=== PATIENT | female | born 1940 | race Caucasian/White ===

== ENCOUNTER 2016-12-12 11:09 | Inpatient (IN) | payer MEDICARE, BC ==
[2016-12-12] MEDS ORDERED: Sodium Chloride 0.9% 10 ML Syringe FLUSH PRN (11:13)
[2016-12-12] MEDS ORDERED: Piperacillin/Tazobactam 4.5 GM in Sodium Chloride 0.9% 100 ML IV ONE (11:54)
[2016-12-12 12:16] LABS: CHLORIDE,CL 106 mmol/L (98-107); SODIUM,NA 142 mmol/L (136-145)
[2016-12-12] MEDS ORDERED: Sodium Chloride 0.9% 1,000 ML IV ONE (12:31)
[2016-12-12] MEDS ORDERED: Ondansetron 4 MG/2 ML SDV IV PRN (13:08)
[2016-12-12] MEDS ORDERED: Ondansetron 4 MG Tab.DIS PO PRN (13:08)
[2016-12-12] MEDS ORDERED: Acetaminophen 325 MG Tab PO PRN (13:13)
[2016-12-12] MEDS ORDERED: LORazepam 2 MG/ML SDV IVPUSH PRN (13:14)
--- NOTE | 2016-12-12 13:17 | EDM.PDOC ---
ED HPI GENERAL MEDICAL PROBLEM - General Chief Complaint: General Stated Complaint: weakness, decreased LOC Time Seen by Provider: 12/12/16 11:15 Source of Information: Reports: RN Notes Reviewed, Other (correction staff) History Limitations: Reports: Altered Mental Status - History of Present Illness INITIAL COMMENTS - FREE TEXT/NARRATIVE: Pt. sent to ER with confusion and decreased LOC. Pt. has history of dementia but is normally ambulatory and participates well with her ADLs. Staff states that pt. was started on Bactrim DS with presumed diagnosis of UTI. Pt. symptoms have not improved and she has been febrile for the past several days. Staff states that she has not had a significant cough and has not complained of dyspnea. Staff states that pt. is not able to ambulate and is much less alert. - Related Data Allergies Allergy/AdvReac Type Severity Reaction Status Date / Time No Known Drug Allergies Allergy Other Verified 12/12/16 11:21 meperidine HCl [From Demerol] AdvReac Nausea Verified 12/12/16 11:21 seasonal Allergy Other Uncoded 12/12/16 11:21 "concetta" AdvReac Nausea Uncoded 12/12/16 11:21 Home Meds: Home Meds Acetaminophen 325 mg PO Q6H PRN 02/09/15 [History] Acetaminophen/traMADol [Ultracet] 1 tab PO Q6H PRN 02/09/15 [History] Calcium Carbonate [Calcium] 1,200 mg PO DAILY 02/09/15 [History] Cholecalciferol (Vitamin D3) [Vitamin D3] 2,000 units PO DAILY 02/09/15 [History ] Fenofibrate,Micronized [Lofibra] 134 mg PO DAILY 02/09/15 [History] Fenofibrate,Micronized [Lofibra] 134 mg PO DAILY 02/09/15 [History] Lutein 6 mg PO DAILY 02/09/15 [History] Lysine 500 mg PO DAILY 02/09/15 [History] Magnesium Oxide [Magnesium] 400 mg PO DAILY 02/09/15 [History] Olmesartan [Benicar] 20 mg PO DAILY 02/09/15 [History] [place]-3 Acid Ethyl Esters 2 gm PO DAILY 02/09/15 [History] Pantoprazole Sodium 40 mg PO DAILY 02/09/15 [History] Prochlorperazine Maleate [Compazine] 10 mg PO ASDIRECTED PRN 02/09/15 [History] Psyllium Husk [Psyllium Fiber] 4 cap PO BEDTIME 02/09/15 [History] Rosuvastatin [Crestor] 5 mg PO DAILY 02/09/15 [History] Triamterene/Hydrochlorothiazid [Triamterene-HCTZ 75-50 MG] 0.5 each PO DAILY [History] clonazePAM [Clonazepam] 2 mg PO BID 02/09/15 [History] hydrOXYzine HCl [hydrOXYzine] 25 mg PO ASDIRECTED PRN 02/09/15 [History] metFORMIN [Glucophage] 500 mg PO DAILY 02/09/15 [History] prednisoLONE Acetate [Pred Forte 1% Ophth Susp] 1 drop EYERT DAILY 02/09/15 [ History] Aspirin [Halfprin] 81 mg PO DAILY #0 02/19/15 [Rx] Potassium Chloride [Klor-Con 10] 10 meq PO BID #0 02/19/15 [Rx] QUEtiapine [SEROquel XR] 300 mg PO BID #0 02/19/15 [Rx] Rivaroxaban [Xarelto] 10 mg PO BEDTIME #14 tablet 02/19/15 [Rx] Past Medical History Other Genitourinary History: bladder surgery Other Psychiatric History: seasonal affective disorder Other Hematologic History: thrombocytopenia - Past Surgical History Other HEENT Surgeries/Procedures: eye surgery Social & Family History - Tobacco Use Smoking Status *Q: Never Smoker Second Hand Smoke Exposure: No - Recreational Drug Use Recreational Drug Use: No ED ROS GENERAL - Review of Systems Review Of Systems: Unable To Obtain ED EXAM, GENERAL - Physical Exam Exam: See Below Exam Limited By: Altered Mental Status General Appearance: No Apparent Distress Throat/Mouth: Normal Inspection, Normal Lips, Normal Oropharynx, No Airway Compromise Head: Atraumatic, Normocephalic Neck: Normal Inspection, Supple, Non-Tender, Full Range of Motion Respiratory/Chest: No Respiratory Distress, Lungs Clear, No Accessory Muscle Use , Chest Non-Tender, Decreased Breath Sounds (bases bilaterally, worse on left) Cardiovascular: Normal Peripheral Pulses, Regular Rate, Rhythm, No Edema, No Murmur GI/Abdominal: Normal Bowel Sounds, Soft, Non-Tender, No Distention (Female) Exam: Deferred Rectal (Female) Exam: Deferred Back Exam: Normal Inspection, Full Range of Motion Extremities: Normal Inspection, Normal Range of Motion, Non-Tender, Normal Capillary Refill Neurological: Alert, CN II-XII Intact, Inattentive, Confused, Memory Loss Recent Events, Abnormal Reflexes Psychiatric: Normal Affect, Normal Mood Skin Exam: Warm, Dry, Intact, Normal Color Lymphatic: No Adenopathy Course - Vital Signs Last Recorded V/S: Last Vital Signs Temp 37.2 C 12/12/16 13:11 Pulse 87 12/12/16 13:11 Resp 16 12/12/16 13:11 BP 139/61 12/12/16 13:11 Pulse Ox 97 12/12/16 13:11 - Orders/Labs/Meds Orders: Active Orders 24 hr Category Date Time Status Patient Status [ADT] Routine ADT 12/12/16 12:34 Active EKG Documentation Completion [RC] STAT Care 12/12/16 11:14 Ordered Oxygen Therapy [RC] 08,20 Care 12/12/16 11:13 Active Chest 1V Frontal [CR] Stat Exams 12/12/16 11:14 Taken CULTURE BLOOD [BC] Stat Lab 12/12/16 11:18 Received CULTURE BLOOD [BC] Stat Lab 12/12/16 11:28 Received Sodium Chloride 0.9% [Saline Flush] Med 12/12/16 11:13 Active 10 ml FLUSH ASDIRECTED PRN Blood Culture x2 Reflex Set [OM.PC] Stat Oth 12/12/16 11:16 Ordered Peripheral IV Insertion Adult [OM.PC] Routine Oth 12/12/16 11:15 Ordered Medication Orders Acetaminophen (Tylenol) 650 mg PO Q4H PRN PRN Reason: Fever Enoxaparin Sodium (Lovenox) 40 mg SUBCUT DAILY SUSANNE Sodium Chloride (Normal Saline) 1,000 mls @ 100 mls/hr IV ASDIRECTED SUSANNE Piperacillin Sod/Tazobactam (Sod 3.375 gm/ Sodium Chloride) 100 mls @ 200 mls/ hr IV Q6H SUSANNE Lorazepam (Ativan) 1 mg IVPUSH Q4H PRN PRN Reason: Seizures Non-Formulary Medication (Nf Drug) 1 each IVPUSH Q6H SUSANNE Ondansetron HCl (Zofran Odt) 4 mg PO Q6H PRN PRN Reason: nausea, able to take PO Ondansetron HCl (Zofran) 4 mg IV Q4H PRN PRN Reason: Nausea/Vomiting Sodium Chloride (Saline Flush) 10 ml FLUSH ASDIRECTED PRN PRN Reason: Keep Vein Open Labs: Laboratory Tests 12/12/16 12/12/16 12/12/16 Range/Units 11:18 11:28 11:28 WBC 12.4 H (4.0-10.0) x10^3/uL RBC 4.19 (4.00-5.50) x10^6/uL Hgb 13.0 D (12.0-16.0) g/dL Hct 39.1 (33.0-47.0) % MCV 93.3 H (78.0-93.0) fL MCH 31.0 (26.0-32.0) pg MCHC 33.2 (32.0-36.0) g/dL RDW Coeff of [place] 13.3 (10.0-15.0) % Plt Count 284 D (130-400) x10^3/uL Neut % (Auto) 81.6 H (50.0-80.0) % Lymph % (Auto) 7.1 L (25.0-50.0) % [place] % (Auto) 11.1 H (2.0-11.0) % Eos % (Auto) 0.0 (0.0-4.0) % Baso % (Auto) 0.2 (0.2-1.2) % PT 10.9 (9.8-11.8) SEC INR 1.0 L (2.0-3.5) Sodium 142 (136-145) mmol/L Potassium 4.3 (3.5-5.1) mmol/L Chloride 106 (98-107) mmol/L Carbon Dioxide 25 (21-32) mmol/L BUN 25 H (7-18) mg/dL Creatinine 0.8 (0.55-1.02) mg/dL Est Cr Clr Drug Dosing TNP Estimated GFR (MDRD) > 60 Glucose 120 H (74-106) mg/dL Lactic Acid (0.4-2.0) mmol/L Calcium 9.2 (8.5-10.1) mg/dL Corrected Calcium 9.76 (8.5-10.1) mg/dL Phosphorus 2.9 (2.6-4.7) mg/dL Magnesium 2.2 (1.8-2.4) mg/dL Total Bilirubin 0.4 (0.2-1.0) mg/dL AST 58 H (15-37) U/L ALT 43 (14-59) U/L Alkaline Phosphatase 86 (46-116) U/L Creatine Kinase 1160 H* (26-192) U/L Creatine Kinase Index 0.2 (0.0-4.0) % CK-MB (CK-2) 2.8 (0.0-3.6) ng/mL Troponin I 0.034 (<=0.056) ng/mL C-Reactive Protein 23.9 H (<=0.9) mg/dL NT-Pro-B Natriuret Pep 208 (<=450) pg/mL Total Protein 7.7 (6.4-8.2) g/dL Albumin 3.3 L (3.4-5.0) g/dL Globulin 4.4 Albumin/Globulin Ratio 0.75 Urine Color (YELLOW) Urine Appearance (CLEAR) Urine pH (5.0-8.0) Ur Specific [place] Urine Protein (NEGATIVE) mg/dL Urine Glucose (UA) (NEGATIVE) mg/dL Urine Ketones (NEGATIVE) mg/dL Urine Occult Blood (NEGATIVE) Urine Nitrite (NEGATIVE) Urine Bilirubin (NEGATIVE) Urine Urobilinogen (0.2) EU/dL Ur Leukocyte Esterase (NEGATIVE) Urine RBC (NOT SEEN) /HPF Urine WBC (NOT SEEN) /HPF Ur Squamous Epith Cells (NEGATIVE) /HPF Urine Bacteria (NEGATIVE) /HPF Urine Mucus (NEGATIVE) /LPF 12/12/16 12/12/16 Range/Units 11:28 12:25 WBC (4.0-10.0) x10^3/uL RBC (4.00-5.50) x10^6/uL Hgb (12.0-16.0) g/dL Hct (33.0-47.0) % MCV (78.0-93.0) fL MCH (26.0-32.0) pg MCHC (32.0-36.0) g/dL RDW Coeff of [place] (10.0-15.0) % Plt Count (130-400) x10^3/uL Neut % (Auto) (50.0-80.0) % Lymph % (Auto) (25.0-50.0) % [place] % (Auto) (2.0-11.0) % Eos % (Auto) (0.0-4.0) % Baso % (Auto) (0.2-1.2) % PT (9.8-11.8) SEC INR (2.0-3.5) Sodium (136-145) mmol/L Potassium (3.5-5.1) mmol/L Chloride (98-107) mmol/L Carbon Dioxide (21-32) mmol/L BUN (7-18) mg/dL Creatinine (0.55-1.02) mg/dL Est Cr Clr Drug Dosing Estimated GFR (MDRD) Glucose (74-106) mg/dL Lactic Acid 1.2 (0.4-2.0) mmol/L Calcium (8.5-10.1) mg/dL Corrected Calcium (8.5-10.1) mg/dL Phosphorus (2.6-4.7) mg/dL Magnesium (1.8-2.4) mg/dL Total Bilirubin (0.2-1.0) mg/dL AST (15-37) U/L ALT (14-59) U/L Alkaline Phosphatase (46-116) U/L Creatine Kinase (26-192) U/L Creatine Kinase Index (0.0-4.0) % CK-MB (CK-2) (0.0-3.6) ng/mL Troponin I (<=0.056) ng/mL C-Reactive Protein (<=0.9) mg/dL NT-Pro-B Natriuret Pep (<=450) pg/mL Total Protein (6.4-8.2) g/dL Albumin (3.4-5.0) g/dL Globulin Albumin/Globulin Ratio Urine Color Yellow (YELLOW) Urine Appearance Slightly cloudy H (CLEAR) Urine pH 6.5 (5.0-8.0) Ur Specific [place] >=1.030 Urine Protein 100 H (NEGATIVE) mg/dL Urine Glucose (UA) Negative (NEGATIVE) mg/dL Urine Ketones Negative (NEGATIVE) mg/dL Urine Occult Blood Moderate H (NEGATIVE) Urine Nitrite Negative (NEGATIVE) Urine Bilirubin Small H (NEGATIVE) Urine Urobilinogen 0.2 (0.2) EU/dL Ur Leukocyte Esterase Small H (NEGATIVE) Urine RBC 5-10 H (NOT SEEN) /HPF Urine WBC 30-40 H (NOT SEEN) /HPF Ur Squamous Epith Cells Not seen (NEGATIVE) /HPF Urine Bacteria Many H (NEGATIVE) /HPF Urine Mucus Few H (NEGATIVE) /LPF Meds: Medications Generic Name Dose Route Start Last Admin Trade Name Parveen PRN Reason Stop Dose Admin Acetaminophen 650 mg 12/12/16 13:13 Tylenol PO Q4H PRN Fever Enoxaparin Sodium 40 mg 12/13/16 08:00 Lovenox SUBCUT DAILY SUSANNE Sodium Chloride 1,000 mls @ 100 mls/hr 12/12/16 13:07 Normal Saline IV ASDIRECTED SUSANNE Piperacillin Sod/Tazobactam 100 mls @ 200 mls/hr 12/12/16 13:15 Sod 3.375 gm/ Sodium Chloride IV Q6H SUSANNE Lorazepam 1 mg 12/12/16 13:14 Ativan IVPUSH Q4H PRN Seizures Non-Formulary Medication 1 each 12/12/16 13:15 Nf Drug IVPUSH Q6H SUSANNE Ondansetron HCl 4 mg 12/12/16 13:08 Zofran Odt PO Q6H PRN nausea, able to take PO Ondansetron HCl 4 mg 12/12/16 13:08 Zofran IV Q4H PRN Nausea/Vomiting Sodium Chloride 10 ml 12/12/16 11:13 Saline Flush FLUSH ASDIRECTED PRN Keep Vein Open Discontinued Medications Generic Name Dose Route Start Last Admin Trade Name Parveen PRN Reason Stop Dose Admin Piperacillin Sod/Tazobactam 100 mls @ 200 mls/hr 12/12/16 11:54 12/12/16 12: 01 Sod 4.5 gm/ Sodium Chloride IV 12/12/16 12:23 200 mls/hr ONETIME ONE Administration Sodium Chloride 1,000 mls @ 1,000 mls/hr 12/12/16 12:31 12/12/16 12:33 Normal Saline IV 12/12/16 13:30 1,000 mls/hr .BOLUS ONE Administration Departure - Departure Time of Disposition: 13:00 Disposition: Admitted As Inpatient 65 Condition: Fair Clinical Impression: UTI, Urinary tract infectious disease - Discharge Information - Problem List & Annotations (1) UTI, Urinary tract infectious disease SNOMED Code(s): 49388669 Code(s): N39.0 - URINARY TRACT INFECTION, SITE NOT SPECIFIED Status: Acute Current Visit: Yes (2) Sepsis SNOMED Code(s): 61719541 Code(s): A41.9 - SEPSIS, UNSPECIFIED ORGANISM Status: Acute Current Visit : Yes Qualifiers: Sepsis type: sepsis due to unspecified organism Qualified Code(s): A41.9 - Sepsis, unspecified organism - Problem List Review Problem List Initiated/Reviewed/Updated: Yes - My Orders Last 24 Hours: My Active Orders 12/12/16 11:13 Oxygen Therapy [RC] 08,20 Sodium Chloride 0.9% [Saline Flush] 10 ml FLUSH ASDIRECTED PRN 12/12/16 11:14 EKG Documentation Completion [RC] STAT Chest 1V Frontal [CR] Stat 12/12/16 11:15 Peripheral IV Insertion Adult [OM.PC] Routine 12/12/16 11:16 Blood Culture x2 Reflex Set [OM.PC] Stat 12/12/16 11:18 CULTURE BLOOD [BC] Stat 12/12/16 11:28 CULTURE BLOOD [BC] Stat 12/12/16 12:34 Patient Status [ADT] Routine - Assessment/Plan Last 24 Hours: My Active Orders 12/12/16 11:13 Oxygen Therapy [RC] 08,20 Sodium Chloride 0.9% [Saline Flush] 10 ml FLUSH ASDIRECTED PRN 12/12/16 11:14 EKG Documentation Completion [RC] STAT Chest 1V Frontal [CR] Stat 12/12/16 11:15 Peripheral IV Insertion Adult [OM.PC] Routine 12/12/16 11:16 Blood Culture x2 Reflex Set [OM.PC] Stat 12/12/16 11:18 CULTURE BLOOD [BC] Stat 12/12/16 11:28 CULTURE BLOOD [BC] Stat 12/12/16 12:34 Patient Status [ADT] Routine Assessment:: UTI, meets sepsis criteria. Rhabdomyolysis Plan: Pt. will be admitted acutely. Dr. Addie Mccallum is the pts. primary and she will admit. Pt. is a code level 2.
[2016-12-12] MEDS ORDERED: hydrOXYzine HCl 25 MG Tab PO PRN (15:51)
[2016-12-12] MEDS: Piperacillin/Tazobactam 3.375 GM in Sodium Chloride 0.9% 100 ML IV SCH (17:47)
[2016-12-12] MEDS: Nystatin Crm 30 GM Tube TOP SCH (19:51)
--- NOTE | 2016-12-12 20:26 | HP ---
CHIEF COMPLAINT: Fever and confusion. HISTORY OF PRESENT ILLNESS: This 76-year-old female has been feeling unwell over the past 2 to 3 days. Her only complaint to me is that she has had a dry mouth and shortness of breath. Yesterday, she had 101 fever and was incontinent of urine. Therefore, on-call physician did order Bactrim of which she received 3 doses. She normally gets up, dresses herself, feeds herself, but has been total assist of cares and has been unable to communicate or even state her name with 2 falls over the weekend. Today, blood pressure 180/73, temp 102.8, pulse 104, respiratory rate 24, O2 90% on room air at the half-way, so she was sent over to the ER for evaluation. Did get Tylenol at 10:[address] Orosco, Psychiatry, was contacted. He discontinued Klonopin. She had recently had that increased. She is also on other antipsychotic medications including Zyprexa 10 mg daily since at least September. She is on tramadol 0.5 mg twice daily senior living, Seroquel 400 mg long-term also, and she does take Crestor for cholesterol 5 mg daily. The patient denies any cough, sore throat, muscle aches, nausea, vomiting, diarrhea. Staff report that she was found once naked in her room. She had been peeing and having even bowel movements on the floor. There has not been any diarrhea. Otherwise, she has not had a UTI for quite some time. She has had no recent pneumonia but has not been eating over the last day. Oxygen levels were actually low down to 85% when she arrived. There was some concern for aspiration pneumonia, therefore she got Zosyn in the ER. PAST MEDICAL HISTORY: 1. Alzheimer's disease with behavioral disturbances, has been stable now on medical management. 2. Essential hypertension. 3. Chronic constipation. 4. GERD without esophagitis. 5. Hyperlipidemia. 6. Major depressive disorder. 7. Schizoaffective disorder. 8. Mood disorder. 9. Unspecified psychosis. 10.Chronic anemia. 11.Fibromyalgia. 12.Generalized anxiety disorder. 13.Osteoarthritis with previous hip replacement. 14.Hypokalemia. 15.Restless legs syndrome. 16.Type 2 diabetes without complications, on metformin without long-term insulin use. PAST SURGICAL HISTORY: Surgically, she has had the hip replacement. ALLERGIES: Demerol and seasonal allergies. MEDICATIONS: Medication list is reviewed, and she is on as above. Otherwise, Tylenol 2 tablets 3 times a day as needed for pain, amoxicillin prior to dental work, artificial tears, aspirin 81 mg daily, Bactrim DS b.i.d. for 3 total doses, Benicar 40 mg daily, Claritin 10 mg as needed for itching, clonazepam 1 mg twice daily, senna Ex-Lax tablets, hydroxyzine as needed for itching, Motrin 400 mg as needed for pain, Klonopin 1 mg as needed for restless legs, lutein, lysine, magnesium, metformin 250 b.i.d., mineral oil, MiraLAX, Nystatin, [place]- 3, Protonix, potassium 7.5 mL 3 times a day, psyllium capsules, Crestor 5 mg daily, Seroquel 400 mg daily, Tegretol 200 mg 2 times a day, tramadol 25 mg b.i.d., triamcinolone cream, Tussin Cough syrup, and Zyprexa 10 mg daily. SOCIAL HISTORY: She is . Her still lives at home. FAMILY HISTORY: She has a daughter who is living. Her mother had similar problems with dementia. REVIEW OF SYSTEMS: Unable due to the patient's condition. PHYSICAL EXAMINATION: Vital Signs: Include temp of currently 98.9 but T-max in the ER 101.7, pulse 87, blood pressure 139/61, but had been up to 172/71, respiratory rate 16, and O2 of 97% on 2 L. General: She is in no acute distress. Her skin has an overall red appearance. She is resting peacefully but able to open her eyes to verbal command. Heart: Regular rate and rhythm. S1, S2 without murmur. Lungs: Lung sounds are clear to auscultation over the left lung, but decreased air entry and crackles over the right mid lung. Abdomen: Positive bowel sounds. Soft and nontender. Extremities: Warm and dry. No edema. Mental status: She is somnolent. She is disoriented to person, place, and time. Skin: She has some generalized redness. She has been having some ringworm type rashes over the past several months, but no worsening of this is noted on today's exam. LABORATORY DATA: Lab work in the ER did reveal white count 12.4, hemoglobin 13, platelets 284, INR 1. sodium 142, potassium 4.3, chloride 106, bicarb 25, BUN 25, creatinine 0.8, glucose 120, lactic acid 1.2, calcium 9.2, AST 58, ALT 43. CK 1160. Troponin, CK-MB negative. CRP 23.9, albumin 3.3. UA shows 5-10 rbc's, 30-40 wbc's. IMAGING DATA: EKG reviewed shows sinus with a rate of 94, nonspecific ST changes over the anterior leads, but no elevation. Chest x-ray shows probable infiltrate in the right mid lung. ASSESSMENT AND PLAN: 1. Sepsis with fever and leukocytosis, likely source would be the lungs. I think the patient has been somnolent for few days and aspirated urine is also positive, so we will go ahead and culture that. She was given IV Zosyn in the ER, and we will continue this; this should cover well for aspiration. Although she is from a half-way and I am going to hold off on MRSA coverage, she will be swabbed for MRSA. 2. Concern for neuroleptic malignant syndrome, especially on olanzapine. She is also on tramadol, so serotonin syndrome is possible as well. I have gone ahead and ordered some IV dantrolene. Otherwise, we will do supportive care with IV fluids. I have IV Ativan available if seizures. 3. Essential hypertension, elevated blood pressures. This seems to be coming down. We will continue her home Benicar. 4. Diabetes, mild. We will hold her metformin for now. We will do q.i.d. Accu-Cheks. 5. Dementia with behavioral disturbance. We will continue to monitor her off medications. Most likely, we will continue to hold olanzapine, and I will be in contact with her psychiatrist. I think when she is awake and more alert, it is reasonable to restart the Tegretol. 6. Rhabdomyolysis, probably due to underlying condition. We will stop her Crestor. We will continue IV fluids. We will repeat a CK level in the morning. 7. Gastroesophageal reflux disease. We will continue Protonix. 8. Deep venous thrombosis prophylaxis. We will have her on Lovenox. The plan at this point, the patient is admitted for acute cares for IV fluids, IV Zosyn. Blood cultures have already been done. Urine culture will be sent. Anticipate she will need at least a 48-hour stay. We will monitor her with telemetry for any arrhythmia. She is a code level 3, no CPR, no intubation. MKA: 12/12/2016 13:23:37 MODL: 12/12/2016 20:18:48 /[id number]
[2016-12-12] MEDS: Sodium Chloride 0.9% 1,000 ML IV SCH (23:09)
[2016-12-13] MEDS: Piperacillin/Tazobactam 3.375 GM in Sodium Chloride 0.9% 100 ML IV SCH ×5 (00:07→23:32)
[2016-12-13] MEDS: Nystatin Crm 30 GM Tube TOP SCH ×2 (07:45→20:20)
[2016-12-13] MEDS: Enoxaparin 40 MG/0.4 ML Syringe SUBCUT SCH (07:45)
[2016-12-13] MEDS: Pantoprazole 40 MG Tab.CR PO SCH (07:46)
[2016-12-13] MEDS: Aspirin 81 MG Tab.EC PO SCH (07:46)
[2016-12-13] MEDS: prednisoLONE Acetate 1% Ophth Susp 5 ML Bottle EYERT SCH (07:46)
[2016-12-13] MEDS ORDERED: Olmesartan 20 MG Tab PO SCH ×2 (08:00→08:10)
[2016-12-13] MEDS ORDERED: hydrOXYzine HCl 25 MG Tab PO PRN (08:08)
[2016-12-13 08:11] LABS: CHLORIDE,CL 108 mmol/L (98-107); SODIUM,NA 143 mmol/L (136-145)
[2016-12-13] MEDS: ClonazePAM 0.5 MG Tab PO SCH ×2 (09:25→20:19)
[2016-12-13] MEDS: carBAMazepine 200 MG Tab PO SCH ×2 (09:25→20:19)
[2016-12-13] MEDS: Dextran 70/Hypromellose/PF Ophth Soln 0.9 ML UD EYEBOTH SCH ×3 (09:26→20:19)
--- NOTE | 2016-12-13 10:01 | PN ---
Progress Note for RAJAN BENJAMIN Date: 12/13/2016 Room #: VM.201 SUBJECTIVE: Hospital day #2 for a 76-year-old admitted from the group home with fevers and confusion. Concern was for neuroleptic malignant syndrome with underlying pneumonia and UTI. Discussed with Psychiatry. They do not feel that she probably have that condition. However, she did go ahead and receive some IV dantrolene. Overall, her condition is improving with no further fevers. She still continues to be confused, but she is more alert and talkative today. Otherwise, she has been afebrile since admission. She is denying any cough or shortness of breath. She denies any abdominal pain, nausea, or vomiting. Wheat[place] catheter was placed yesterday to get a UA, but this will be removed today. She has had several bowel movements. Her bowel regimen is on hold. OBJECTIVE: Vital Signs: Her temperature is 98.4, pulse 68, blood pressure 128/64, respiratory rate 18, O2 99 on 2 L. General: She is in no acute distress. Heart: Regular rate and rhythm. S1, S2 without murmur. Lungs: Sounds are decreased in both bases with poor effort. Abdomen: Has positive bowel sounds. Soft and nontender. Extremities: Warm and dry. No edema. Mental status: She is disoriented x3. She says she recognizes me but could not place me. She is unaware of her location even though she says, "Of course, I know where I am." LABORATORY DATA: Lab work shows white count improved to 7.1, hemoglobin 11.5, platelets 272. Sodium 143, potassium 3.8, chloride 108, bicarb 25, BUN 17, creatinine 0.7. AST went up slightly to 60. CK level is improved down to 827. Albumin low at 2.7. Urine culture is growing gram-negative rods. ASSESSMENT AND PLAN: 1. Sepsis due to gram-negative urinary tract infection. She is on IV Zosyn. She also has a pneumonia which is likely aspiration, which will be covered by Zosyn. 2. Concern for neuroleptic malignant syndrome, which possibly started off this whole events. She is on dantrolene and improving. We will decrease it to twice daily and discontinue it today. 3. Aspiration pneumonia. Again on IV Zosyn. She is oxygenating well. We should be able to wean oxygen today. 4. Anemia. Hemoglobin down to 11.5, could be some hemodilution. There are no signs of acute bleeding. We will repeat tomorrow. She is on Lovenox for deep vein thrombosis prophylaxis. 5. Gastroesophageal reflux disease. She is on her home Protonix. 6. Dementia with behavioral disturbances and history of depression and psychosis. We will restart her Tegretol today. Her clonazepam has been already restarted at a decreased dose of 1 mg twice daily. We will continue to monitor her condition closely. I have been in contact with her psychiatrist. I have informed him that I do not plan on restarting Zyprexa, until she is reassessed by him. Likely we will restart the Seroquel tomorrow if needed. Otherwise, I am going to continue to hold tramadol that she normally gets for pain. The patient will continue acute cares. We will continue IV fluids. We will repeat lab work tomorrow. We will continue IV Zosyn and await her urine culture before switching her over to oral antibiotics. I am going to get PT involved to get her up and moving around along with OT as she was independent at the [facility]. Anticipate that over the next 24-48 hours, she can hopefully be transitioned back there. We will also remove the [place] today. NAV: 12/13/2016 08:59:29 MODL: 12/13/2016 09:49:36 /[id number]
[2016-12-13] MEDS: Sodium Chloride 0.9% 1,000 ML IV SCH ×2 (10:25→21:40)
[2016-12-13] MEDS: Potassium Chloride 10% 20 MEQ/15 ML Soln 15 ML UD Cup PO SCH ×2 (11:38→20:19)
[2016-12-13] MEDS: [UNRECOGNIZED DRUG - REMARK] PO SCH (20:41)
[2016-12-14] MEDS: Piperacillin/Tazobactam 3.375 GM in Sodium Chloride 0.9% 100 ML IV SCH (05:33)
[2016-12-14 07:06] LABS: CHLORIDE,CL 108 mmol/L (98-107); SODIUM,NA 144 mmol/L (136-145)
[2016-12-14] MEDS: ClonazePAM 0.5 MG Tab PO SCH (08:07)
[2016-12-14] MEDS: Potassium Chloride 10% 20 MEQ/15 ML Soln 15 ML UD Cup PO SCH (08:07)
[2016-12-14] MEDS: Aspirin 81 MG Tab.EC PO SCH (08:08)
[2016-12-14] MEDS: Nystatin Crm 30 GM Tube TOP SCH (08:08)
[2016-12-14] MEDS: carBAMazepine 200 MG Tab PO SCH (08:08)
[2016-12-14] MEDS: Enoxaparin 40 MG/0.4 ML Syringe SUBCUT SCH (08:08)
[2016-12-14] MEDS: Pantoprazole 40 MG Tab.CR PO SCH (08:08)
[2016-12-14] MEDS: prednisoLONE Acetate 1% Ophth Susp 5 ML Bottle EYERT SCH (08:09)
[2016-12-14] MEDS: Dextran 70/Hypromellose/PF Ophth Soln 0.9 ML UD EYEBOTH SCH ×2 (08:09→11:07)
[2016-12-14] MEDS: [UNRECOGNIZED DRUG - REMARK] PO SCH (08:09)
[2016-12-14] MEDS ORDERED: Potassium Chloride 10% 20 MEQ/15 ML Soln 15 ML UD Cup PO SCH (08:23)
[2016-12-14] MEDS ORDERED: Amoxicillin/Clavulanate K 875-125 MG Tab PO SCH (08:30)
[2016-12-14] MEDS ORDERED: QUEtiapine 100 MG Tab PO SCH (08:30)
--- NOTE | 2016-12-14 09:51 | PN ---
Progress Note for RAJAN BENJAMIN Date: 12/14/2016 Room #: VM.201 SUBJECTIVE: Hospital day #3 on a 76-year-old admitted with fevers and confusion. There was some concern for neuroleptic malignant syndrome, so her psychiatric medications have been held, particularly the Zyprexa. She also had a UTI and pneumonia. She is up walking around, more alert today, but still disorientated. She has not had any falls, but she has been walking quite a bit. Tegretol was restarted yesterday. I had also placed her back on Klonopin on admission, which had recently been stopped 2 mg b.i.d., but we ordered 1 mg b.i.d. Otherwise, she is denying any cough or shortness of breath. Urine culture returned positive for E. coli. She was on IV Zosyn, but pulled out her IV this morning. Catheter was removed yesterday. She has been voiding okay. OBJECTIVE: Vital Signs: Her temperature is 97.6, pulse 78, blood pressure 175/84, respiratory rate 18, O2 95% on room air. General: She is in no acute distress. Heart: Regular rate and rhythm. S1, S2 without murmur. Lungs: Lung sounds are clear to auscultation over the left lung, but decreased with crackles on the right base. Abdomen: Positive bowel sounds. Soft and nontender. Extremities: Warm and dry. No edema. Mental Status: She is disoriented x3. When I ask her who I am, she says, "of course, I know," but she cannot come up with who it is. LABORATORY DATA: Lab work shows her white count 8.7, hemoglobin 11.6, platelets 291. Sodium 141, potassium 3.1, chloride 108, bicarb 26, BUN 11, glucose 125. Blood sugars have all been below 168. CK has dropped further to 398. Magnesium pending. Albumin 2.7 yesterday. ASSESSMENT: 1. Hypokalemia. We will replace orally because she took her IV out. We will check a magnesium level. 2. Sepsis due to Escherichia coli urinary tract infection, improved. We will switch her IV Zosyn over to Augmentin. 3. Escherichia coli urinary tract infection. She did not have a [place] prior to the admission, so we will probably treat for just 7 days. This will also cover for possible pneumonia. 4. Likely, aspiration pneumonia. We will get Speech Therapy involved for a swallow eval today. 5. Concern for neuroleptic malignant syndrome. We have been restarting her psych medications one by one. Today, I will restart the Seroquel and see how she tolerates it. She received her last dose of dantrolene yesterday. 6. Mild anemia, probably due to some hemodilution. Her hemoglobin has remained stable at 11.6. 7. Dementia with behavioral disturbances. We will restart Seroquel and see how she does today. Hopefully, later today, she could return to the [facility] or at least by tomorrow. 8. Gastroesophageal reflux disease. She will continue her Protonix. PLAN: At this point, she will continue her acute cares while she awaits evaluation by therapies. She has pulled out her IV, so we will place her on oral Augmentin. I will increase her potassium up to 40 mEq t.i.d. and repeat in the morning if she stays inpatient or on Monday if she goes back to the [facility]. MKA: 12/14/2016 08:31:16 MODL: 12/14/2016 08:54:41 /[id number]
[2016-12-14 10:49] VITALS: BP 188/84
[2016-12-14] MEDS ORDERED: amLODIPine 5 MG Tab PO SCH (13:00)
--- NOTE | 2016-12-14 13:16 | PCM.DCSUM1 ---
Discharge Summary - Hospital Course Free Text/Narrative:: See dictated progress note from today. Patient admitted with fevers and confusion over several days was given bactrim but condition worsened. She improved with stopping medications, IV fluids and ABX. Was up wondering and pulling out her IV but not having any aggressive behaviors. BP was elevated and norvasc was started. Discussed that returning back to the [place] setting would likely be best for her moods also. CK levels improved on discharge from over 1000 to 300s. Kidney function was normal. Urine output was good. K was low at 3.1 but was being replaced orally. - Discharge Data Discharge Date: 12/14/16 Discharge Disposition: DC/Tfer to [facility] 03 Condition: Good - Discharge Diagnosis/Problem(s) (1) Rhabdomyolysis SNOMED Code(s): 341343342 ICD Code: M62.82 - RHABDOMYOLYSIS Status: Acute Current Visit: Yes Qualifiers: Rhabdomyolysis type: non-traumatic Qualified Code(s): M62.82 - Rhabdomyolysis - Patient Summary/Data Consults: Consultations 12/13/16 08:59 OT Evaluation and Treatment [CONS] Routine PT Evaluation and Treatment [CONS] Routine 12/14/16 08:23 Consult to Speech Language Pathology [[employer] Evaluation and Treatment] [CONS] Routine - Patient Instructions Diet: Diabetic Diet Activity: As Tolerated Driving: Do Not Drive Showering/Bathing: May Shower Notify Provider of: Fever, Increased Pain, Swelling and Redness, Nausea and/or Vomiting Other/Special Instructions: Recheck with me next week on [place] rounds. Potassium check in 1 week, Increase potassium to 40 TID for 2 days last dose of 40 meq should be on the evening of 12/15 because it was started in the hospital then resume 10 TID. Start norvasc 5 mg daily for BP, check BP daily and I will review on rounds next week. Schedule a video swallow test next week. Continue to stay off Zyprexa and follow up with psych on [place] rounds. Augmentin BID for another 5 days. PT/OT/Speech at the [place]. [facility] standing orders. Klonopin dose at 1 mg BID until seen by psych. Redirect with wondering behaviors. miralax changed to prn due to loose stools on ABX. Stop the crestor and fish oil - Discharge Plan Prescriptions/Med Rec: Amoxicillin/Clavulanate K [Augmentin 875 MG/125 MG] 1 tab PO Q12HR #10 tablet amLODIPine [Norvasc] 5 mg PO DAILY #30 tablet ClonazePAM [KlonoPIN] 1 mg PO BID #60 tablet Home Medications: Home Meds Acetaminophen 650 mg PO TID PRN 02/09/15 [History] Lysine 500 mg PO DAILY 02/09/15 [History] Magnesium Oxide [Magnesium] 400 mg PO DAILY 02/09/15 [History] Olmesartan [Benicar] 40 mg PO DAILY 02/09/15 [History] Pantoprazole Sodium 40 mg PO DAILY 02/09/15 [History] Psyllium Husk [Psyllium Fiber] 4 cap PO BEDTIME 02/09/15 [History] hydrOXYzine HCl [hydrOXYzine] 25 mg PO BID PRN 02/09/15 [History] metFORMIN [Glucophage] 250 mg PO BID 02/09/15 [History] prednisoLONE Acetate [Pred Forte 1% Ophth Susp] 1 drop EYERT DAILY 02/09/15 [ History] Aspirin [Halfprin] 81 mg PO DAILY #0 02/19/15 [Rx] ClonazePAM [KlonoPIN] 1 mg PO BEDTIME PRN 12/12/16 [History] Dextran 70/Hypromellose [Artificial Tears] 2 drop EYEBOTH TID 12/12/16 [History] Fluticasone Propionate [Flonase] 1 spray NASBOTH BID 12/12/16 [History] Ibuprofen 400 mg PO ASDIRECTED PRN 12/12/16 [History] Loratadine 10 mg PO DAILY 12/12/16 [History] Lutein 10 mg PO DAILY 12/12/16 [History] Nystatin [Nystatin Crm] 1 applic TOP DAILY 12/12/16 [History] Potassium Chloride [Potassium Chloride Solution] 7.5 ml PO TID 12/12/16 [History ] QUEtiapine [SEROquel] 400 mg PO DAILY 12/12/16 [History] Saliva Stimulant Comb. No.3 [Biotene Moisturizing Mouth] 2 sprays PO BID [History] Sennosides 1 tab PO DAILY PRN 12/12/16 [History] Triamcinolone Acetonide [Triamcinolone Acetonide 0.1% Crm] 1 applic TOP ASDIRECTED PRN 12/12/16 [History] carBAMazepine [Tegretol] 200 mg PO BID 12/12/16 [History] guaiFENesin/Dextromethorphan [Tussin Dm Liquid] 10 ml PO Q4H PRN 12/12/16 [ History] Amoxicillin/Clavulanate K [Augmentin 875 MG/125 MG] 1 tab PO Q12HR #10 tablet [Rx] ClonazePAM [KlonoPIN] 1 mg PO BID #60 tablet 12/14/16 [Rx] Polyethylene Glycol 3350 [MiraLAX] 34 gram PO DAILY PRN #30 12/14/16 [Rx] amLODIPine [Norvasc] 5 mg PO DAILY #30 tablet 12/14/16 [Rx] - General Info Date of Service: 12/14/16 Functional Status: Reports: Pain Controlled - Review of Systems General: Reports: No Symptoms Pulmonary: Denies: Shortness of Breath, Pleuritic Chest Pain, Cough Cardiovascular: Denies: Chest Pain Gastrointestinal: Denies: Abdominal Pain Genitourinary: Denies: Dysuria, Frequency, Burning Neurological: Denies: Dizziness, Headache Psychiatric: Reports: Confusion - Patient Data Vitals - Most Recent: Last Vital Signs Temp 98 F 12/14/16 10:00 Pulse 82 12/14/16 10:00 Resp 24 H 12/14/16 10:00 BP 188/84 H 12/14/16 10:00 Pulse Ox 94 L 12/14/16 10:00 Weight - Most Recent: 73.845 kg I&O - Last 24 hours: Intake & Output 12/13/16 12/14/16 12/14/16 22:59 06:59 14:59 Intake Total 1733 1159 300 Output Total 900 Balance 1733 259 300 Lab Results - Last 24 hrs: Laboratory Results - last 24 hr 12/13/16 12/13/16 12/13/16 Range/Units 11:28 17:05 20:22 WBC (4.0-10.0) x10^3/uL RBC (4.00-5.50) x10^6/uL Hgb (12.0-16.0) g/dL Hct (33.0-47.0) % MCV (78.0-93.0) fL MCH (26.0-32.0) pg MCHC (32.0-36.0) g/dL RDW Coeff of Broderick (10.0-15.0) % Plt Count (130-400) x10^3/uL Add Manual Diff Neutrophils % (Manual) (50-80) % Band Neutrophils % (0-6) % Lymphocytes % (Manual) (25-50) % Monocytes % (Manual) (2-11) % Eosinophils % (Manual) (0-4) % Basophils % (Manual) (0-1) % Blast Cells % (0) % Platelet Estimate Sodium (136-145) mmol/L Potassium (3.5-5.1) mmol/L Chloride (98-107) mmol/L Carbon Dioxide (21-32) mmol/L BUN (7-18) mg/dL Creatinine (0.55-1.02) mg/dL Est Cr Clr Drug Dosing mL/min Estimated GFR (MDRD) Glucose (74-106) mg/dL POC Glucose 114 H 149 H 168 H (74-106) mg/dL Calcium (8.5-10.1) mg/dL Magnesium (1.8-2.4) mg/dL Creatine Kinase (26-192) U/L 12/14/16 12/14/16 12/14/16 Range/Units 06:38 06:38 06:38 WBC 8.7 (4.0-10.0) x10^3/uL RBC 3.70 L (4.00-5.50) x10^6/uL Hgb 11.6 L (12.0-16.0) g/dL Hct 36.1 (33.0-47.0) % MCV 97.6 H (78.0-93.0) fL MCH 31.4 (26.0-32.0) pg MCHC 32.1 (32.0-36.0) g/dL RDW Coeff of Broderick 13.2 (10.0-15.0) % Plt Count 291 (130-400) x10^3/uL Add Manual Diff Yes Neutrophils % (Manual) 63 (50-80) % Band Neutrophils % 8 H (0-6) % Lymphocytes % (Manual) 17 L (25-50) % Monocytes % (Manual) 9 (2-11) % Eosinophils % (Manual) 1 (0-4) % Basophils % (Manual) 1 (0-1) % Blast Cells % 1 H (0) % Platelet Estimate Adequate Sodium 144 (136-145) mmol/L Potassium 3.1 L (3.5-5.1) mmol/L Chloride 108 H (98-107) mmol/L Carbon Dioxide 26 (21-32) mmol/L BUN 11 (7-18) mg/dL Creatinine 0.7 (0.55-1.02) mg/dL Est Cr Clr Drug Dosing 53.23 mL/min Estimated GFR (MDRD) > 60 Glucose 133 H (74-106) mg/dL POC Glucose (74-106) mg/dL Calcium 8.0 L (8.5-10.1) mg/dL Magnesium (1.8-2.4) mg/dL Creatine Kinase 398 H* (26-192) U/L 12/14/16 12/14/16 12/14/16 Range/Units 06:38 06:40 11:07 WBC (4.0-10.0) x10^3/uL RBC (4.00-5.50) x10^6/uL Hgb (12.0-16.0) g/dL Hct (33.0-47.0) % MCV (78.0-93.0) fL MCH (26.0-32.0) pg MCHC (32.0-36.0) g/dL RDW Coeff of Broderick (10.0-15.0) % Plt Count (130-400) x10^3/uL Add Manual Diff Neutrophils % (Manual) (50-80) % Band Neutrophils % (0-6) % Lymphocytes % (Manual) (25-50) % Monocytes % (Manual) (2-11) % Eosinophils % (Manual) (0-4) % Basophils % (Manual) (0-1) % Blast Cells % (0) % Platelet Estimate Sodium (136-145) mmol/L Potassium (3.5-5.1) mmol/L Chloride (98-107) mmol/L Carbon Dioxide (21-32) mmol/L BUN (7-18) mg/dL Creatinine (0.55-1.02) mg/dL Est Cr Clr Drug Dosing mL/min Estimated GFR (MDRD) Glucose (74-106) mg/dL POC Glucose 125 H 119 H (74-106) mg/dL Calcium (8.5-10.1) mg/dL Magnesium 1.8 (1.8-2.4) mg/dL Creatine Kinase (26-192) U/L DL Results - Last 24 hrs: Microbiology 12/12/16 13:13 MRSA Surveillance Culture - Final Nares, Unspecified NO MRSA ISOLATED Med Orders - Current: Current Medications Acetaminophen (Tylenol) 650 mg PO Q4H PRN PRN Reason: Fever Last Admin: 12/14/16 11:08 Dose: 650 mg Amlodipine Besylate (Norvasc) 5 mg PO DAILY [facility] Amoxicillin/Clavulanate Potassium (Augmentin 875 Mg/125 Mg) 1 tab PO Q12HR [facility] Last Admin: 12/14/16 09:30 Dose: 1 tab Artificial Tears (Tears Naturale Free) 0 each EYEBOTH TID [facility] Last Admin: 12/14/16 11:07 Dose: 1 each Aspirin (Halfprin) 81 mg PO DAILY [facility] Last Admin: 12/14/16 08:08 Dose: 81 mg Carbamazepine (Tegretol Tab) 200 mg PO BID [facility] Last Admin: 12/14/16 08:08 Dose: 200 mg Clonazepam (Klonopin) 1 mg PO BID [facility] Last Admin: 12/14/16 08:07 Dose: 1 mg Enoxaparin Sodium (Lovenox) 40 mg SUBCUT DAILY [facility] Last Admin: 12/14/16 08:08 Dose: 40 mg Hydroxyzine HCl (Atarax) 25 mg PO BID PRN PRN Reason: Other Lorazepam (Ativan) 1 mg IVPUSH Q4H PRN PRN Reason: Seizures Last Admin: 12/13/16 18:20 Dose: 1 mg Biotene (Saliva Stimulant Comb. No.3 ) *Ptom* 2 sprays PO BID [facility] Last Admin: 12/14/16 08:09 Dose: Not Given Nystatin (Nystatin Crm) 1 gm TOP BID [facility] Last Admin: 12/14/16 08:08 Dose: 1 applic Olmesartan (Benicar) 40 mg PO DAILY [facility] Last Admin: 12/14/16 08:08 Dose: 40 mg Ondansetron HCl (Zofran Odt) 4 mg PO Q6H PRN PRN Reason: nausea, able to take PO Ondansetron HCl (Zofran) 4 mg IV Q4H PRN PRN Reason: Nausea/Vomiting Pantoprazole Sodium (Protonix) 40 mg PO DAILY [facility] Last Admin: 12/14/16 08:08 Dose: 40 mg Potassium Chloride (Potassium Chloride Solution) 40 meq PO TID [facility] Last Admin: 12/14/16 11:08 Dose: 40 meq Prednisolone Acetate (Pred Forte 1% Ophth Susp) 0 ml EYERT DAILY [facility] Last Admin: 12/14/16 08:09 Dose: Not Given Quetiapine Fumarate (Seroquel) 400 mg PO DAILY [facility] Last Admin: 12/14/16 09:30 Dose: 400 mg Discontinued Medications Dantrolene Sodium (Dantrium) 60 mg IV Q6H [facility] Last Admin: 12/12/16 16:17 Dose: Not Given Dantrolene Sodium (Dantrium) 60 mg IV Q6H [facility] Last Admin: 12/13/16 04:19 Dose: 60 mg Dantrolene Sodium (Dantrium) 60 mg IV Q12H [facility] Stop: 12/13/16 23:00 Last Admin: 12/13/16 09:21 Dose: Not Given Dantrolene Sodium (Dantrium) 60 mg IV Q12H [facility] Stop: 12/13/16 23:00 Last Admin: 12/13/16 22:30 Dose: 60 mg Hydroxyzine HCl (Atarax) 25 mg PO ASDIRECTED PRN PRN Reason: Other Piperacillin Sod/Tazobactam (Sod 4.5 gm/ Sodium Chloride) 100 mls @ 200 mls/hr IV ONETIME ONE Stop: 12/12/16 12:23 Last Admin: 12/12/16 12:01 Dose: 200 mls/hr Sodium Chloride (Normal Saline) 1,000 mls @ 1,000 mls/hr IV .BOLUS ONE Stop: 12/12/16 13:30 Last Admin: 12/12/16 12:33 Dose: 1,000 mls/hr Sodium Chloride (Normal Saline) 1,000 mls @ 100 mls/hr IV ASDIRECTED [facility] Stop: 12/14/16 07:00 Last Admin: 12/13/16 21:40 Dose: 100 mls/hr Piperacillin Sod/Tazobactam (Sod 3.375 gm/ Sodium Chloride) 100 mls @ 200 mls/ hr IV Q6H [facility] Last Admin: 12/14/16 05:33 Dose: 200 mls/hr Olmesartan (Benicar) 20 mg PO DAILY [facility] Last Admin: 12/13/16 09:21 Dose: Not Given Potassium Chloride (Potassium Chloride Solution) 10 meq PO TID [facility] Last Admin: 12/14/16 08:07 Dose: 10 meq Sodium Chloride (Saline Flush) 10 ml FLUSH ASDIRECTED PRN PRN Reason: Keep Vein Open Comments:: see dictated progress note *Q Meaningful Use (DIS) - VTE *Q VTE Criteria *Q: - Stroke *Q Stroke Criteria *Q: - AMI *Q AMI Criteria *Q:
== END 2016-12-14 14:00 | DRG 871 ==
LOC: VM.ED 11:09 → VM.MS 12:34
PROVIDERS: ADMIT Internal Medicine; ATTEND Internal Medicine
DX: A41.51 Sepsis due to Escherichia coli [E. coli] (principal); J69.0 Pneumonitis due to inhalation of food and vomit; F39 Unspecified mood [affective] disorder; G21.0 Malignant neuroleptic syndrome; N39.0 Urinary tract infection, site not specified; F32.3 Major depressive disorder, single episode, severe with psychotic features; M62.82 Rhabdomyolysis; E87.6 Hypokalemia; I10 Essential (primary) hypertension; E11.9 Type 2 diabetes mellitus without complications; E78.5 Hyperlipidemia, unspecified; K21.9 Gastro-esophageal reflux disease without esophagitis; K59.09 Other constipation; D64.9 Anemia, unspecified; M19.90 Unspecified osteoarthritis, unspecified site; M79.7 Fibromyalgia; G25.81 Restless legs syndrome; G30.9 Alzheimer's disease, unspecified; F02.80 Dementia in other diseases classified elsewhere, unspecified severity, without behavioral disturbance, psychotic disturbance, mood disturbance, and anxiety; F41.9 Anxiety disorder, unspecified; Z88.8 Allergy status to other drugs, medicaments and biological substances; Z79.01 Long term (current) use of anticoagulants; Z79.84 Long term (current) use of oral hypoglycemic drugs; Z79.899 Other long term (current) drug therapy
CPT/HCPCS: 36415; 51702; 71010; 80053; 81001; 82550; 82553; 83605; 83735; 83880; 84100; 84484; 85025; 85610; 86140; 87040 ×2; 87086; 87088; 87186; 87804 ×2; 93005; 96365; 99284; 99285; J2543; J7030; J7050; 80048; 82962; 92526-GN; 92610-GN; 94760; 97161-GP; 97165-GO; A9270-GY; J1650; J2060

== ENCOUNTER 2019-08-17 09:54 | Inpatient (IN) | payer MEDICARE, BC ==
[2019-08-17] MEDS ORDERED: Sodium Chloride 0.9% 10 ML Syringe FLUSH PRN (10:02)
[2019-08-17] MEDS ORDERED: Albuterol 0.083% 2.5 MG/3 ML Neb Soln NEB ONE (10:42)
--- NOTE | 2019-08-17 10:42 | EDM.PDOC ---
ED HPI GENERAL MEDICAL PROBLEM - General Chief Complaint: Respiratory Problem Stated Complaint: ER Time Seen by Provider: 08/17/19 10:30 Source of Information: Reports: Patient, Family History Limitations: Reports: No Limitations - History of Present Illness INITIAL COMMENTS - FREE TEXT/NARRATIVE: Patient comes emergency department today from the custodial with concerns of cough and a fever. For the past 3 to 4 days the patient has had an increasing congested cough. Not had any shortness of breath or pain in her chest. Just a congested thick very frequent cough. This morning she felt feverish and she had a fever at the custodial of 101. She was given Tylenol prior to her transfer to the ER. She has no palpitations weakness dizziness lightheadedness. No sore throat. No body aches. No abdominal pain nausea or vomiting. No hematuria dysuria or urinary frequency. She just finished a course of Bactrim for a urinary tract infection. No diarrhea constipation black or tarry stools. She has not been exposed anyone ill. She denies any sore throat. There is been no history of aspiration coughing or gagging while eating she has no difficulty eating on a regular basis. - Related Data Allergies Allergy/AdvReac Type Severity Reaction Status Date / Time meperidine HCl [From Demerol] AdvReac Nausea Verified 08/17/19 12:24 seasonal Allergy Other Uncoded 12/12/16 11:21 "concetta" AdvReac Nausea Uncoded 12/12/16 11:21 Home Meds: Home Meds Acetaminophen 650 mg PO TID PRN 02/09/15 [History] Lysine 500 mg PO DAILY 02/09/15 [History] Magnesium Oxide [Magnesium] 400 mg PO DAILY 02/09/15 [History] Olmesartan [Benicar] 40 mg PO DAILY 02/09/15 [History] metFORMIN [Glucophage] 500 mg PO BID 02/09/15 [History] prednisoLONE Acetate [Pred Forte 1% Ophth Susp] 1 drop EYERT DAILY 02/09/15 [ History] Aspirin [Halfprin] 81 mg PO DAILY #0 02/19/15 [Rx] Dextran 70/Hypromellose [Artificial Tears] 2 drop EYEBOTH TID 12/12/16 [History] Fluticasone Propionate [Flonase] 1 spray NASBOTH BID 12/12/16 [History] Ibuprofen 400 mg PO ASDIRECTED PRN 12/12/16 [History] Nystatin [Nystatin Crm] 1 applic TOP DAILY 12/12/16 [History] Potassium Chloride [Potassium Chloride Solution] 7.5 ml PO TID 12/12/16 [History ] QUEtiapine [SEROquel] 400 mg PO DAILY 12/12/16 [History] Sennosides 2 tab PO DAILY 12/12/16 [History] carBAMazepine [Tegretol] 150 mg PO BID 12/12/16 [History] Acetaminophen [Tylenol Extra Strength] 500 mg PO BID 08/17/19 [History] Bisacodyl [Laxative Suppository] 10 mg RC DAILY PRN 08/17/19 [History] Calcium Carbonate/Vitamin D3 [Calcium 250+D] 1 each PO BID 08/17/19 [History] Camphor/Menthol [Sarna Lotion] 0.5 applic .ROUTE ASDIRECTED PRN 08/17/19 [ History] Cholecalciferol (Vitamin D3) [Vitamin D3] 2,000 unit PO DAILY 08/17/19 [History] Cranberry Fruit Extract [Cranberry] 425 mg PO TID 08/17/19 [History] Cyanocobalamin (Vitamin B-12) [Vitamin B-12] 1,000 mcg PO DAILY 08/17/19 [ History] Famotidine [Pepcid] 20 mg PO DAILY 08/17/19 [History] Furosemide [Lasix] 20 mg PO DAILY 08/17/19 [History] Furosemide [Lasix] 40 mg PO DAILY 08/17/19 [History] Gabapentin [Neurontin] 300 mg PO DAILY 08/17/19 [History] Levocetirizine Dihydrochloride 5 mg PO DAILY 08/17/19 [History] OLANZapine [ZyPREXA] 10 mg PO DAILY 08/17/19 [History] Pantoprazole Sodium [Protonix] 40 mg PO Q3D 08/17/19 [History] Petrolatum,White [White Petroleum] 30 gm EYEBOTH BEDTIME 08/17/19 [History] Triamcinolone Acetonide [Triamcinolone Acetonide 0.1% Oint] 1 dose .ROUTE ASDIRECTED PRN 08/17/19 [History] Vits A,C,E/Lutein/Minerals [Healthy Eyes] 1 each PO DAILY 08/17/19 [History] bisacodyL [Bisacodyl] 5 mg PO DAILY PRN 08/17/19 [History] Past Medical History HEENT History: Reports: Other (See Below) Other HEENT History: presbyopia, myopia Cardiovascular History: Reports: High Cholesterol, Hypertension Gastrointestinal History: Reports: Chronic Constipation, GERD Other Genitourinary History: bladder surgery Musculoskeletal History: Reports: Fibromyalgia, Osteoarthritis, Other (See Below ) Other Musculoskeletal History: restless leg syndrome Neurological History: Reports: Alzheimers Disease, Other (See Below) Other Neuro History: dementia, psychosis Psychiatric History: Reports: Anxiety, Depression Other Psychiatric History: seasonal affective disorder Endocrine/Metabolic History: Reports: Diabetes, Type II Hematologic History: Reports: Anemia Other Hematologic History: thrombocytopenia - Past Surgical History Other HEENT Surgeries/Procedures: eye surgery Social & Family History - Family History Family Medical History: Noncontributory - Tobacco Use Smoking Status *Q: Never Smoker - Recreational Drug Use Recreational Drug Use: No ED ROS GENERAL - Review of Systems Review Of Systems: Comprehensive ROS is negative, except as noted in HPI. ED EXAM, GENERAL - Physical Exam Exam: See Below Free Text/Narrative:: She was placed on oxygen at 2 liters for hypoxia and noted to be minimally tachypneic. Exam Limited By: No Limitations General Appearance: Alert, WD/WN, No Apparent Distress Eye Exam: Bilateral Eye: EOMI, PERRL Ears: Normal External Exam, Normal TMs Nose: Normal Inspection, Normal Mucosa Throat/Mouth: Normal Inspection, Normal Lips, Normal Teeth, Normal Oropharynx, Normal Voice, No Airway Compromise Head: Atraumatic, Normocephalic Neck: Normal Inspection, Supple, Non-Tender Respiratory/Chest: No Respiratory Distress, No Accessory Muscle Use, Chest Non- Tender, Crackles (She has fine inspiratory crackles on the LLL with a faint expiratory wheeze. ). No: Normal Breath Sounds (Right lung field is clear, Left with fine inspiratory crackles and late expiratory wheezing. ), Respiratory Distress Cardiovascular: Normal Peripheral Pulses, Regular Rate, Rhythm Peripheral Pulses: 2+: Radial (L), Radial (R), Posterior Tibial (L), Posterior Tibial (R), Dorsalis Pedis (L), Dorsalis Pedis (R) GI/Abdominal: Normal Bowel Sounds, Soft, Non-Tender (Female) Exam: Deferred Rectal (Female) Exam: Deferred Back Exam: Normal Inspection, Full Range of Motion Extremities: Normal Range of Motion, Non-Tender, Normal Capillary Refill, Pedal Edema (bilateral 2+ pitting which is chronic for her she reports. ) Neurological: Alert, Oriented, Normal Cognition, No Motor/Sensory Deficits Psychiatric: Normal Affect, Normal Mood Skin Exam: Intact, No Rash, Diaphoretic, Increased Warmth Course - Vital Signs Last Recorded V/S: Last Vital Signs Temp 36.5 C 08/17/19 12:31 Pulse 67 08/17/19 12:31 Resp 15 08/17/19 12:31 BP 127/58 L 08/17/19 12:31 Pulse Ox 95 08/17/19 12:31 - Orders/Labs/Meds Orders: Active Orders 24 hr Category Date Time Status Oxygen Therapy, ED [RC] ASDIRECTED Care 08/17/19 10:03 Active RT Aerosol Therapy [RC] ASDIRECTED Care 08/17/19 10:43 Active CULTURE BLOOD [BC] Stat Lab 08/17/19 10:24 Received CULTURE BLOOD [BC] Stat Lab 08/17/19 10:56 Received LACTIC ACID [CHEM] Timed Lab 08/17/19 14:09 Received UA RFX DL AND CULT IF INDIC [URIN] Stat Lab 08/17/19 10:02 Ordered Sodium Chloride 0.9% [Saline Flush] Med 08/17/19 10:02 Active 10 ml FLUSH ASDIRECTED PRN Blood Culture x2 Reflex Set [OM.PC] Stat Oth 08/17/19 10:02 Ordered Peripheral IV Insertion Adult [OM.PC] Stat Oth 08/17/19 10:02 Ordered Medication Orders Acetaminophen (Tylenol) 650 mg PO TID PRN PRN Reason: Pain Artificial Tears (Genteal Mild To Moderate Ophth Soln) 0 ml EYEBOTH TID SUSANNE Aspirin (Halfprin) 81 mg PO DAILY SSUANNE Bisacodyl (Dulcolax) 5 mg PO ASDIRECTED PRN PRN Reason: Constipation Bisacodyl (Dulcolax) 10 mg RECTAL ASDIRECTED PRN PRN Reason: Constipation Calcium Carbonate (Calcium Carbonate/Vitamin D 1250 Mg-200 Unit) 1 tab PO BID SUSANNE Carbamazepine (Tegretol Tab) 150 mg PO BID SUSANNE Ceftriaxone Sodium (Rocephin) 1 gm IVPUSH DAILY SUSANNE Stop: 08/20/19 08:01 Cranberry (Cranberry) 500 mg PO TID [facility] Cyanocobalamin (Vitamin B12) 1,000 mcg PO DAILY [facility] Enoxaparin Sodium (Lovenox) 30 mg SUBCUT DAILY [facility] Last Admin: 08/17/19 13:35 Dose: 30 mg Famotidine (Pepcid) 20 mg PO DAILY [facility] Fluticasone Propionate (Flonase) 0 gm NASBOTH BID [facility] Furosemide (Lasix) 20 mg PO DAILY [facility] Furosemide (Lasix) 40 mg PO DAILY SUSANNE Gabapentin (Neurontin) 300 mg PO DAILY [facility] Sodium Chloride (Normal Saline) 500 mls @ 100 mls/hr IV ASDIRECTED [facility] Loratadine (Claritin) 10 mg PO DAILY SUSANNE Magnesium Oxide (Magnesium Oxide) 400 mg PO DAILY [facility] Metformin HCl (Glucophage) 500 mg PO BID [facility] Multivitamins/Minerals (Prosight) 1 tab PO DAILY [facility] Non-Formulary Medication (Lysine [Lysine]) 500 mg PO DAILY [facility] Nystatin (Nystatin Crm) 0 gm TOP DAILY [facility] Olmesartan (Benicar) 40 mg PO DAILY SUSANNE Pantoprazole Sodium (Protonix) 40 mg PO ASDIRECTED SUSANNE Potassium Chloride (Potassium Chloride Solution) 7.5 meq PO TID [facility] Prednisolone Acetate (Pred Forte 1% Ophth Susp) 0 ml EYERT DAILY [facility] Quetiapine Fumarate (Seroquel) 400 mg PO DAILY [facility] Senna (Senna) 8.6 mg PO DAILY PRN PRN Reason: Constipation Sodium Chloride (Saline Flush) 10 ml FLUSH ASDIRECTED PRN PRN Reason: Keep Vein Open Last Admin: 08/17/19 11:18 Dose: 10 ml Labs: Laboratory Tests 08/17/19 08/17/19 08/17/19 Range/Units 10:02 10:24 10:24 WBC 11.8 H (4.0-10.0) x10^3/uL RBC 3.95 L (4.00-5.50) x10^6/uL Hgb 12.4 (12.0-16.0) g/dL Hct 37.6 (33.0-47.0) % MCV 95.2 H (78.0-93.0) fL MCH 31.4 (26.0-32.0) pg MCHC 33.0 (32.0-36.0) g/dL RDW Coeff of Broderick 13.4 (10.0-15.0) % Plt Count 310 (130-400) x10^3/uL Neut % (Auto) 77.8 (50.0-80.0) % Lymph % (Auto) 9.3 L (25.0-50.0) % [place] % (Auto) 12.3 H (2.0-11.0) % Eos % (Auto) 0.3 (0.0-4.0) % Baso % (Auto) 0.3 (0.2-1.2) % Sodium 133 L (136-145) mmol/L Potassium 5.1 (3.5-5.1) mmol/L Chloride 94 L (98-107) mmol/L Carbon Dioxide 25 (21-32) mmol/L Anion Gap 19.1 (10-20) mmol/L BUN 16 (7-18) mg/dL Creatinine 1.1 H (0.55-1.02) mg/dL Est Cr Clr Drug Dosing TNP Estimated GFR (MDRD) 48 Glucose 236 H (74-106) mg/dL Lactic Acid (0.4-2.0) mmol/L Calcium 9.0 (8.5-10.1) mg/dL Corrected Calcium 9.48 (8.5-10.1) mg/dL Total Bilirubin 0.3 (0.2-1.0) mg/dL AST 19 (15-37) U/L ALT 31 (14-59) U/L Alkaline Phosphatase 76 (46-116) U/L C-Reactive Protein 7.1 H (<=0.9) mg/dL Total Protein 7.2 (6.4-8.2) g/dL Albumin 3.4 (3.4-5.0) g/dL Globulin 3.8 Albumin/Globulin Ratio 0.89 SARS-CoV-2 RNA (RT-PCR) Negative (NEGATIVE) 08/17/19 Range/Units 10:24 WBC (4.0-10.0) x10^3/uL RBC (4.00-5.50) x10^6/uL Hgb (12.0-16.0) g/dL Hct (33.0-47.0) % MCV (78.0-93.0) fL MCH (26.0-32.0) pg MCHC (32.0-36.0) g/dL RDW Coeff of Broderick (10.0-15.0) % Plt Count (130-400) x10^3/uL Neut % (Auto) (50.0-80.0) % Lymph % (Auto) (25.0-50.0) % [place] % (Auto) (2.0-11.0) % Eos % (Auto) (0.0-4.0) % Baso % (Auto) (0.2-1.2) % Sodium (136-145) mmol/L Potassium (3.5-5.1) mmol/L Chloride (98-107) mmol/L Carbon Dioxide (21-32) mmol/L Anion Gap (10-20) mmol/L BUN (7-18) mg/dL Creatinine (0.55-1.02) mg/dL Est Cr Clr Drug Dosing Estimated GFR (MDRD) Glucose (74-106) mg/dL Lactic Acid 5.5 H* (0.4-2.0) mmol/L Calcium (8.5-10.1) mg/dL Corrected Calcium (8.5-10.1) mg/dL Total Bilirubin (0.2-1.0) mg/dL AST (15-37) U/L ALT (14-59) U/L Alkaline Phosphatase (46-116) U/L C-Reactive Protein (<=0.9) mg/dL Total Protein (6.4-8.2) g/dL Albumin (3.4-5.0) g/dL Globulin Albumin/Globulin Ratio SARS-CoV-2 RNA (RT-PCR) (NEGATIVE) Meds: Medications Generic Name Dose Route Start Last Admin Trade Name Freq PRN Reason Stop Dose Admin Acetaminophen 650 mg 08/17/19 12:08 Tylenol PO TID PRN Pain Artificial Tears 0 ml 08/17/19 20:00 Genteal Mild To Moderate Ophth Soln EYEBOTH TID SUSANNE Aspirin 81 mg 08/18/19 08:00 Halfprin PO DAILY SUSANNE Bisacodyl 5 mg 08/17/19 12:08 Dulcolax PO ASDIRECTED PRN Constipation Bisacodyl 10 mg 08/17/19 12:08 Dulcolax RECTAL ASDIRECTED PRN Constipation Calcium Carbonate 1 tab 08/17/19 20:00 Calcium Carbonate/Vitamin D 1250 Mg-200 Unit PO BID [facility] Carbamazepine 150 mg 08/17/19 20:00 Tegretol Tab PO BID [facility] Ceftriaxone Sodium 1 gm 08/18/19 08:00 Rocephin IVPUSH 08/20/19 08:01 DAILY [facility] Cranberry 500 mg 08/17/19 20:00 Cranberry PO TID [facility] Cyanocobalamin 1,000 mcg 08/18/19 08:00 Vitamin B12 PO DAILY [facility] Enoxaparin Sodium 30 mg 08/17/19 12:15 08/17/19 13:35 Lovenox SUBCUT 30 mg DAILY [facility] Administration Famotidine 20 mg 08/18/19 08:00 Pepcid PO DAILY [facility] Fluticasone Propionate 0 gm 08/17/19 20:00 Flonase NASBOTH BID [facility] Furosemide 20 mg 08/18/19 08:00 Lasix PO DAILY [facility] Furosemide 40 mg 08/18/19 08:00 Lasix PO DAILY [facility] Gabapentin 300 mg 08/18/19 08:00 Neurontin PO DAILY [facility] Sodium Chloride 500 mls @ 100 mls/hr 08/17/19 12:30 Normal Saline IV ASDIRECTED [facility] Loratadine 10 mg 08/18/19 08:00 Claritin PO DAILY [facility] Magnesium Oxide 400 mg 08/18/19 08:00 Magnesium Oxide PO DAILY [facility] Metformin HCl 500 mg 08/17/19 20:00 Glucophage PO BID [facility] Multivitamins/Minerals 1 tab 08/18/19 08:00 Prosight PO DAILY [facility] Non-Formulary Medication 500 mg 08/18/19 08:00 Lysine [Lysine] PO DAILY [facility] Nystatin 0 gm 08/18/19 08:00 Nystatin Crm TOP DAILY [facility] Olmesartan 40 mg 08/18/19 08:00 Benicar PO DAILY [facility] Pantoprazole Sodium 40 mg 08/17/19 12:15 Protonix PO ASDIRECTED [facility] Potassium Chloride 7.5 meq 08/17/19 20:00 Potassium Chloride Solution PO TID [facility] Prednisolone Acetate 0 ml 08/18/19 08:00 Pred Forte 1% Ophth Susp EYERT DAILY [facility] Quetiapine Fumarate 400 mg 08/18/19 08:00 Seroquel PO DAILY [facility] Senna 8.6 mg 08/17/19 12:08 Senna PO DAILY PRN Constipation Sodium Chloride 10 ml 08/17/19 10:02 08/17/19 11:18 Saline Flush FLUSH 10 ml ASDIRECTED PRN Administration Keep Vein Open Discontinued Medications Generic Name Dose Route Start Last Admin Trade Name Parveen PRN Reason Stop Dose Admin Albuterol 2.5 mg 08/17/19 10:42 08/17/19 10:48 Proventil Neb Soln NEB 08/17/19 10:43 2.5 mg ONETIME ONE Administration Ceftriaxone Sodium 2 gm 08/17/19 11:13 08/17/19 11:23 Rocephin IVPUSH 08/17/19 11:14 2 gm STAT ONE Administration Lactated Ringer's 1,000 mls @ 999 mls/hr 08/17/19 11:14 08/17/19 11:18 Ringers, Lactated IV 08/17/19 12:14 999 mls/hr ONETIME ONE Administration - Re-Assessments/Exams Free Text/Narrative Re-Assessment/Exam: 08/17/19 11:17 Lactic Acid came back at 5.5. 500ml LR bolus then 125mls/hr Ceftriaxone 2 grams IVPB. Blood cultures pending. Albuterol with improved coughing and wheezing. 08/17/19 With the presence of the lactic acid elevation and review of her UA from the clinic that was indeterminate to PCN Dr. Ny came and saw the patient in the ED and will admit under her service here at [place]. The patient is comfortable with this plan and her questions and daughters questions answered. Departure - Departure Time of Disposition: 12:00 Disposition: Admitted As Inpatient 65 Clinical Impression: Hypoxia Sepsis Qualifiers: Sepsis type: sepsis due to unspecified organism Qualified Code(s): A41.9 - Sepsis, unspecified organism - Discharge Information Sepsis Event Note - Evaluation Sepsis Screening Result: Possible Sepsis Risk - Focused Exam Vital Signs: Vital Signs Temp Pulse Resp BP Pulse Ox 08/17/19 10:05 37.4 C 96 24 H 160/59 H 88 L Date Exam was Performed: 08/17/19 Time Exam was Performed: 14:49 - My Orders Last 24 Hours: My Active Orders 08/17/19 10:02 UA RFX DL AND CULT IF INDIC [URIN] Stat Sodium Chloride 0.9% [Saline Flush] 10 ml FLUSH ASDIRECTED PRN Blood Culture x2 Reflex Set [OM.PC] Stat Peripheral IV Insertion Adult [OM.PC] Stat 08/17/19 10:03 Oxygen Therapy, ED [RC] ASDIRECTED 08/17/19 10:24 CULTURE BLOOD [BC] Stat 08/17/19 10:43 RT Aerosol Therapy [RC] ASDIRECTED 08/17/19 10:56 CULTURE BLOOD [BC] Stat 08/17/19 14:09 LACTIC ACID [CHEM] Timed - Assessment/Plan Last 24 Hours: My Active Orders 08/17/19 10:02 UA RFX DL AND CULT IF INDIC [URIN] Stat Sodium Chloride 0.9% [Saline Flush] 10 ml FLUSH ASDIRECTED PRN Blood Culture x2 Reflex Set [OM.PC] Stat Peripheral IV Insertion Adult [OM.PC] Stat 08/17/19 10:03 Oxygen Therapy, ED [RC] ASDIRECTED 08/17/19 10:24 CULTURE BLOOD [BC] Stat 08/17/19 10:43 RT Aerosol Therapy [RC] ASDIRECTED 08/17/19 10:56 CULTURE BLOOD [BC] Stat 08/17/19 14:09 LACTIC ACID [CHEM] Timed Assessment:: Hypoxia nrml CXR Sepsis most likely from UTI. Plan: Admit Dr. Ny inpatient for further care and management.
[2019-08-17] MEDS ORDERED: cefTRIAXone 2 GM Vial IVPUSH ONE (11:13)
[2019-08-17] MEDS ORDERED: Lactated Ringers 1,000 ML IV ONE (11:14)
--- NOTE | 2019-08-17 11:26 | CR ---
[id number] RAD/RAD Chest PA And Lateral EXAM: RAD Chest PA And Lateral INDICATION: SHORTNESS OF BREATH, HYPOXIA. COMPARISON: December 2016. DISCUSSION: Mild cardiomegaly and central vascular congestion. Bilateral symmetric lung hyperinflation suggesting underlying changes of chronic obstructive pulmonary disease. No infiltrate, effusion, pneumothorax, or edema. Thoracic kyphosis. IMPRESSION: No acute findings. Chronic findings are described above. Madno Solorio MD 08/17/19 1125 Thank you for allowing us to participate in the care of your patient.
[2019-08-17 11:32] LABS: CHLORIDE,CL 94 mmol/L (98-107); SODIUM,NA 133 mmol/L (136-145)
[2019-08-17 11:35] LABS: ANION GAP 19.1 mmol/L (10-20)
[2019-08-17] MEDS ORDERED: Sennosides 8.6 MG Tab PO PRN (12:08)
[2019-08-17] MEDS ORDERED: Bisacodyl 5 MG Tab PO PRN (12:08)
[2019-08-17] MEDS ORDERED: Bisacodyl 10 MG Supp RECTAL PRN (12:08)
[2019-08-17] MEDS ORDERED: Sodium Chloride 0.9% 500 ML IV SCH (12:30)
[2019-08-17] MEDS: Enoxaparin 30 MG/0.3 ML Syringe SUBCUT SCH (13:35)
[2019-08-17] MEDS ORDERED: Sodium Chloride 0.9% 1,000 ML IV SCH (18:05)
--- NOTE | 2019-08-17 18:31 | HP ---
CHIEF COMPLAINT: Fever with cough. HISTORY OF PRESENT ILLNESS: The patient is a 78-year-old resident of [facility] who I was called about this morning by her nurse with concerns regarding temperature of 102 with cough. The patient is currently on Bactrim DS for a bladder infection that started on 08/14/2019. Urine cultures have come back showing E. coli and Aerococcus, but complete sensitivities are not back yet, but it states that Aerococcus may not be sensitive to Bactrim. The patient has been having a cough for over the past month. She is not certain if she has hay fever. She does have some dementia, so her history is not that accurate. The patient also was noted to have somewhat reduced oxygen levels which was also new for patient as well. She was seen in the emergency room by the nurse practitioner and did have a negative COVID test. MEDICATIONS: Her medications that she is currently on are Tylenol 325 two tablets as needed for pain 3 times a day p.r.n., Artificial Tears 2 drops in both eyes 3 times a day, aspirin 81 mg 1 pill a day. She had been on Bactrim DS, Benicar 40 mg 1 pill daily, bisacodyl laxative 5 mg by mouth daily p.r.n., Bisacodyl suppository 10 mg 1 daily p.r.n., calcium with vitamin D 315/250 one pill 2 times a day, cranberry capsules 425 one pill 3 times a day, vitamin B12 1000 mcg 1 pill a day, Ex-Lax tablets 1 tablet by mouth as needed daily, Flonase 1 spray each nostril twice a day as scheduled for congestion, multivitamins with minerals 1 pill daily, ibuprofen 2 tablets as needed for pain, Lasix 20 mg along with 40 mg in the morning. Levocetirizine 5 mg 1 pill a day, lysine 500 mg 1 pill a day, magnesium oxide 400 mg 1 pill a day, metformin 500 mg twice a day, Neurontin 300 mg 1 time a day, Nystatin applied topically as needed for yeast rash. Pepcid 20 mg 1 pill a day as needed for heartburn, it says give once daily, so I think that is scheduled. Potassium chloride 7.5 mL by mouth 3 times a day, prednisolone 1 drop right eye daily, Protonix 40 mg 1 pill every 3 days, Sarna lotion as needed for itching, Senna Plus 2 tablets once a day, Seroquel 350 mg 1 pill a day, Seroquel 50 mg 1 pill a day, Systane gel 1 drop both eyes 3 times a day, Systane Nighttime ointment 1 drop both eyes at bedtime, Tegretol 150 mg 1 pill twice a day, triamcinolone cream 0.1% as needed, Tylenol 500 b.i.d., vitamin D 2000 units 1 pill a day, Zyprexa 10 mg 1 pill once a day. ALLERGIES: The patient is allergic to Demerol, (the concetta), seasonal allergies. PAST MEDICAL HISTORY: The patient has Alzheimer's dementia. She has type 2 diabetes mellitus. She has behavioral disturbances with dementia. She has wandering disorder. She has psychosis. She has affective disorder. She has fibromyalgia, hyperlipidemia, osteoarthritis, restless legs syndrome, gastroesophageal reflux disease without esophagitis, benign hypertension, anemia unspecified, hypokalemia, major depressive disorder, dry eyes, peptic ulcer disease, recent UTI, schizoaffective disorder, bipolar disorder, obsessive thoughts, constipation, senile osteoporosis, sleep hypoxemia which she has refused oxygen at night and declines CPAP. She has had mild thrombocytopenia. She has had trochanteric bursitis. 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 She has had a left total hip on 02/03/2015. She has had several eye injection procedures. She has had an appendectomy. She has had bladder surgery x2 with a rectocele. She has had a breast biopsy in 1988. She had a cyst aspirated in 1984. She has had hysterectomy. She has had removal of membrane on her cataract. She has had skin biopsy. She has had tonsillectomy. FAMILY MEDICAL HISTORY: Mother has had cataracts. Father is . Sister is alive. Otherwise not contributory. SOCIAL HISTORY: The patient is a current resident of [facility]. She had been . She had lived in [facility] prior to moving to [place] in August. 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 She has 1 daughter who is estranged from them, lives in [place]. She is a nonsmoker and nondrinker. She had been previously, daughter is from her first marriage. REVIEW OF SYSTEMS: The patient walks with a walker. She does have a chronic cough. She is forgetful. Does have dry eyes. Denies pain. Denies problems with incontinence of urine. Denies skin rashes or any swelling. Denies bruising. OBJECTIVE: Vital Signs: Show temperature is 37.4, pulse 96, blood pressure is 160/59, respirations 24, saturations are 88% on 2 L. Skin: [place], warm, and dry. General: She does have a frequent cough. HEENT: Conjunctivae are clear. Pharynx is normal. Neck: Supple. No anterior cervical lymphadenopathy. No thyromegaly. Heart: Regular rate and rhythm without murmurs or bruits. Lungs: Clear to auscultation. Abdomen: Obese, soft, nontender. No hepatosplenomegaly. Extremities: Lower extremities have no edema. The patient is able to sit up. LABORATORY DATA: Shows her white blood cell count 11.8, hemoglobin 12.4, platelets 310 with 77 segs, 9 lymphocytes, 12 monos. Sodium is 133, potassium 5.1, creatinine 1.1, GFR 48, glucose 236, lactic acid 5.5. LFTs were normal. Albumin is 3.4, CRP is elevated at 7.1. COVID test rapid is negative. Lactic acid was 5.5. Chest x-ray was done which shows no acute infiltrate. IMPRESSION: 1. Systemic inflammatory response syndrome. 2. Urinary tract infection with Escherichia coli and Aerococcus infection. 3. Hypoxemia, question if it is chronic versus acute. 4. Alzheimer's dementia. 5. Schizoaffective disorder. 6. Reduced appetite. 7. Hypertension. 8. Type 2 diabetes mellitus. PLAN: Because of her elevated lactic acid and concerning for fever that she had of 102 with hypoxemia at 88 and her age being 78, I do feel she warrants acute care hospitalization. She was given Rocephin 2 g IV in the emergency room as well as a liter of LR. We will continue her on IV Rocephin, switch her to normal saline. We will give her oxygen for supplemental care. We will repeat lactic acid. We will place her on Lovenox for DVT prophylaxis. Check her magnesium level. Watch her blood sugars. Anticipate short-term stay at hospital, however, to go back to the alf, she will need COVID clearance again. Dr. Addie Mccallum will be her attending doctor. The patient's code level status is do not resuscitate/do not intubate. We will check blood gases on patient as well. GM08/17/2019 12:37:41 MODL: 08/17/2019 17:31:11 /[id number]
[2019-08-17] MEDS: Sodium Chloride 0.9% 1,000 ML IV SCH (18:48)
[2019-08-17] MEDS: Potassium Chloride 10% 20 MEQ/15 ML Soln 15 ML UD Cup PO SCH (19:21)
[2019-08-17] MEDS: Calcium Carbonate/Vitamin D3 1250 MG-200 Unit Tab PO SCH (19:22)
[2019-08-17] MEDS: carBAMazepine 200 MG Tab PO SCH (19:22)
[2019-08-17] MEDS: metFORMIN 500 MG Tab PO SCH (19:22)
[2019-08-17] MEDS: Hypromellose 0.3% Ophth Soln 15 ML Bottle EYEBOTH SCH (19:23)
[2019-08-17] MEDS: Fluticasone Propionate Nasal Spray 16 GM Bottle NASBOTH SCH (19:23)
[2019-08-17] MEDS: Cranberry 500 MG Cap PO SCH (19:23)
[2019-08-17] MEDS: Acetaminophen 325 MG Tab PO PRN (23:07)
[2019-08-18] MEDS: Sodium Chloride 0.9% 1,000 ML IV SCH (05:43)
[2019-08-18] MEDS: Fluticasone Propionate Nasal Spray 16 GM Bottle NASBOTH SCH ×2 (07:57→20:06)
[2019-08-18] MEDS: prednisoLONE Acetate 1% Ophth Susp 5 ML Bottle EYERT SCH (07:57)
[2019-08-18] MEDS: Potassium Chloride 10% 20 MEQ/15 ML Soln 15 ML UD Cup PO SCH ×3 (07:57→20:04)
[2019-08-18] MEDS: cefTRIAXone 1 GM Vial IVPUSH SCH (07:57)
[2019-08-18] MEDS: Enoxaparin 30 MG/0.3 ML Syringe SUBCUT SCH (07:57)
[2019-08-18] MEDS: QUEtiapine 100 MG Tab PO SCH (07:58)
[2019-08-18] MEDS: carBAMazepine 200 MG Tab PO SCH ×2 (07:58→20:05)
[2019-08-18] MEDS: Calcium Carbonate/Vitamin D3 1250 MG-200 Unit Tab PO SCH ×2 (07:58→20:05)
[2019-08-18] MEDS: Cranberry 500 MG Cap PO SCH ×3 (07:58→20:05)
[2019-08-18] MEDS: Loratadine 10 MG Tab PO SCH (07:58)
[2019-08-18] MEDS: Furosemide 20 MG Tab PO SCH (07:59)
[2019-08-18] MEDS: Furosemide 40 MG Tab PO SCH (07:59)
[2019-08-18] MEDS: Aspirin 81 MG Tab.EC PO SCH (07:59)
[2019-08-18] MEDS: metFORMIN 500 MG Tab PO SCH ×2 (07:59→20:05)
[2019-08-18] MEDS: Cyanocobalamin (Vitamin B12) 1,000 MCG Tab PO SCH (07:59)
[2019-08-18] MEDS: Magnesium Oxide 400 MG Tab PO SCH (07:59)
[2019-08-18] MEDS: Famotidine 20 MG Tab PO SCH (07:59)
[2019-08-18] MEDS: Gabapentin 300 MG Cap PO SCH (07:59)
[2019-08-18] MEDS: Beta-Carotene (Vitamin A) w/Vitamin C & E plus Minerals Tab PO SCH (07:59)
[2019-08-18] MEDS ORDERED: Pantoprazole 40 MG Tab.CR PO SCH (08:00)
[2019-08-18] MEDS: Hypromellose 0.3% Ophth Soln 15 ML Bottle EYEBOTH SCH ×3 (08:03→20:07)
[2019-08-18] MEDS: Nystatin Crm 30 GM Tube TOP SCH (08:04)
[2019-08-18] MEDS: Olmesartan 20 MG Tab PO SCH (08:14)
[2019-08-18] MEDS ORDERED: Prochlorperazine 5 MG Tab PO PRN (08:15)
[2019-08-18 08:17] LABS: CHLORIDE,CL 100 mmol/L (98-107); SODIUM,NA 136 mmol/L (136-145)
[2019-08-18 08:27] LABS: ANION GAP 14.1 mmol/L (10-20)
[2019-08-18] MEDS: Oxybutynin 5 MG Tab PO SCH ×2 (08:51→20:04)
[2019-08-18] MEDS: ALPRAZolam 0.25 MG Tab PO PRN ×2 (08:51→13:03)
--- NOTE | 2019-08-18 09:16 | PN ---
Progress Note for RAJAN BENJAMIN Date: 08/18/2019 Room #: VM.202 SUBJECTIVE: This is the patient's second hospital day. She was admitted with SIRS with UTI, and she was having a fever and cough. She did note did not sleep at all during the night. She does have to get up frequently to go to the bathroom. She has a little bit nausea this morning and is not interested in eating. Her temperature stayed afebrile during the night. OBJECTIVE: Vital Signs: Her temperature is 36.9, pulse is 89, blood pressure is 143/58, and saturations are 93% on 2 L. Skin: [place], warm, and dry. Heart: Regular rate and rhythm. Lungs: Clear to auscultation. Extremities: Trace edema. Weight is pending today. LABORATORY DATA: Her white blood cell count has improved to 9.8, hemoglobin is 12.4, and platelets 310. Basic metabolic profile is pending as well as lactic acid. Urinalysis from yesterday had semi packed white blood cells with many bacteria. IMPRESSION: 1. Systemic inflammatory response syndrome. 2. Urinary tract infection, E coli and aerococcus. 3. Nausea. 4. Urgency. 5. Insomnia. 6. Schizoaffective disorder. 7. Alzheimer dementia. 8. Nocturnal hypoxemia. 9. Hypertension. 10.Type 2 diabetes mellitus. PLAN: We will reduce her IV flow rate. We will start her on oxybutynin to see if that helps with the urine retention. We will offer Compazine to help with nausea, and we will await the results for culture. We will continue with the IV Rocephin as well as IV fluids and oxygen. Dr. Addie Mccallum to assume care tomorrow morning. GM08/18/2019 08:20:45 MODL: 08/18/2019 09:10:33 /[id number] BMP came back ok. Lactic acid improving. UA is abnormal, as expected with UC pending. LUCERO
[2019-08-18] MEDS: Acetaminophen 325 MG Tab PO PRN (20:05)
[2019-08-19] MEDS: Sodium Chloride 0.9% 1,000 ML IV SCH (03:51)
[2019-08-19] MEDS: Acetaminophen 325 MG Tab PO PRN (07:19)
[2019-08-19] MEDS: cefTRIAXone 1 GM Vial IVPUSH SCH (08:03)
[2019-08-19] MEDS: Enoxaparin 30 MG/0.3 ML Syringe SUBCUT SCH (08:04)
[2019-08-19] MEDS: Potassium Chloride 10% 20 MEQ/15 ML Soln 15 ML UD Cup PO SCH ×2 (08:05→11:54)
[2019-08-19] MEDS: metFORMIN 500 MG Tab PO SCH (08:06)
[2019-08-19] MEDS: carBAMazepine 200 MG Tab PO SCH (08:07)
[2019-08-19] MEDS: Loratadine 10 MG Tab PO SCH (08:07)
[2019-08-19] MEDS: Beta-Carotene (Vitamin A) w/Vitamin C & E plus Minerals Tab PO SCH (08:07)
[2019-08-19] MEDS: Oxybutynin 5 MG Tab PO SCH (08:07)
[2019-08-19] MEDS: Gabapentin 300 MG Cap PO SCH (08:08)
[2019-08-19] MEDS: Calcium Carbonate/Vitamin D3 1250 MG-200 Unit Tab PO SCH (08:08)
[2019-08-19] MEDS: Famotidine 20 MG Tab PO SCH (08:08)
[2019-08-19] MEDS: Cyanocobalamin (Vitamin B12) 1,000 MCG Tab PO SCH (08:08)
[2019-08-19] MEDS: Furosemide 20 MG Tab PO SCH (08:08)
[2019-08-19] MEDS: Magnesium Oxide 400 MG Tab PO SCH (08:09)
[2019-08-19] MEDS: Furosemide 40 MG Tab PO SCH (08:09)
[2019-08-19] MEDS: Cranberry 500 MG Cap PO SCH ×2 (08:09→11:56)
[2019-08-19] MEDS: Aspirin 81 MG Tab.EC PO SCH (08:09)
[2019-08-19] MEDS: Fluticasone Propionate Nasal Spray 16 GM Bottle NASBOTH SCH (08:10)
[2019-08-19] MEDS: Hypromellose 0.3% Ophth Soln 15 ML Bottle EYEBOTH SCH ×2 (08:10→11:56)
[2019-08-19 08:11] LABS: ANION GAP 13.8 mmol/L (10-20); CHLORIDE,CL 102 mmol/L (98-107); SODIUM,NA 139 mmol/L (136-145)
[2019-08-19] MEDS: prednisoLONE Acetate 1% Ophth Susp 5 ML Bottle EYERT SCH (08:14)
[2019-08-19] MEDS: Nystatin Crm 30 GM Tube TOP SCH (08:14)
[2019-08-19] MEDS: QUEtiapine 100 MG Tab PO SCH (08:22)
[2019-08-19] MEDS: Olmesartan 20 MG Tab PO SCH (08:22)
--- NOTE | 2019-08-19 09:10 | CR ---
[id number] RAD/RAD Chest PA And Lateral EXAM: FRONTAL AND LATERAL CHEST INDICATION: COUGH. COMPARISON: August 17, 2019. DISCUSSION: Stable focal elevation of the right hemidiaphragm. There is a prominent convex right curvature of the mediastinum/hilum on the right. This could represent tortuosity or dilation of the thoracic aorta, but is nonspecific. Consider chest CT with contrast for further evaluation. Mild cardiomegaly without evidence of pulmonary edema. Mild chronic scattered parenchymal opacities likely representing scarring with no definite acute infiltrates. Mildly accentuated thoracic kyphosis. Mild mid thoracic compression fracture. IMPRESSION: 1. Scattered chronic parenchymal opacities likely represent scarring. No definite acute infiltrates. 2. Abnormal contour of the right hilum and upper mediastinum. This could represent tortuosity or dilatation of the thoracic aorta, but is nonspecific. A chest CT with contrast could provide further evaluation. Tate Barkley MD 08/19/19 0909 Thank you for allowing us to participate in the care of your patient.
[2019-08-19 09:29] VITALS: BP 145/66
[2019-08-19 10:00] VITALS: PULSE 102
[2019-08-19] MEDS: LYSINE 500 MG PO SCH ×2 (11:55→11:56)
[2019-08-19] MEDS ORDERED: Amoxicillin/Clavulanate K 875-125 MG Tab PO SCH (20:00)
--- NOTE | 2019-08-19 23:05 | DISCH ---
PRIMARY DISCHARGE DIAGNOSIS: Sepsis secondary to an Escherichia coli urinary tract infection. SECONDARY DISCHARGE DIAGNOSES: 1. Escherichia coli urinary tract infection with recurrent urinary tract infections. She also had Aerococcus as an outpatient and failed treatment with Bactrim. 2. Type 2 diabetes, on metformin with some lactic acidosis, possibly due to sepsis as well. Lactic acid level was up to 5.8, improved down to 2.9 yesterday. 3. Nausea, resolved. The patient is eating up to 90% of her supper last night. 4. Loose stools just initially on admission. She denies any further diarrhea. She had been on laxatives. 5. Dementia with behavioral disorder. 6. Essential hypertension. 7. Recurrent major depression. 8. Restless legs syndrome. 9. Fibromyalgia. 10.Osteoporosis. 11.Hyperlipidemia. 12.Anxiety. REASON FOR ADMISSION: On the date of admission, this 78-year-old female was sent over to the emergency room due to fever reported to be over 100. It was also reported in the emergency room that she had a cough; however, the patient denies that she has been coughing, although coughed during my exam. Temp was up to 101. Her white count was elevated and her heart rates were 96. O2 sat was 88%. She was requiring oxygen, which is not normal for her. She has no underlying chronic lung disease. The patient improved with IV fluids and IV Rocephin. Her culture eventually did come back, this time E coli sensitive to Augmentin and cephalosporins. The patient was feeling better and hopeful to go home. She had a COVID test, which was negative. Her metformin was continued during her stay and her blood sugars were in the 120s to 180 range, but it was discontinued on discharge due to the lactic acidosis. The patient's oxybutynin was also discontinued. Potassium was decreased down to twice daily. Her discharging kidney function was normal. Potassium was 3.8, but was like 5.1 on admission. Her white count was 7.4 on discharge. Hemoglobin was 11.2. The patient was treated with Lovenox for DVT prophylaxis during her stay for stress ulcer prophylaxis. She is already on Protonix. She received a total of 2 g of Rocephin initially on her admission on 08/16 and then IV Rocephin on 08/17 and 08/18. DISCHARGE PLANS AND INSTRUCTIONS: The patient is going back to [facility]. Decrease potassium to 2 times a day. Hold metformin for now, but resume if lactic acid is normal. BMP and lactic acid will be done in 1 week. She will have q.i.d. Accu-Cheks per longterm protocol, Augmentin b.i.d. for 6 more doses. She will recheck on her next due longterm rounds. She will be on yogurt for 2 weeks to prevent diarrhea and hold senna if diarrhea should occur. PHYSICAL EXAMINATION: Discharging Vitals: Include a temperature of 98.2, pulse 90, blood pressure 145/66, respiratory rate 18, and O2 of 87% on room air, 92% on 2 L. General: She is in no acute distress. Heart: Regular rate and rhythm. S1, S2 without murmur. Lungs: Lung sounds are clear to auscultation bilaterally without crackles or wheezes. Abdomen: Nondistended, nontender. Extremities: Warm and dry. No edema. Mental Status: She is alert. She is orientated x3. Chest x-ray was repeated this morning before discharge. It did show the patient to have some scarring in the bases, probably some tortuous aorta. Could do a CT to further evaluate. However, the patient is not having any symptoms. She is encouraged to use also incentive spirometry on discharge. Greater than 30 minutes spent on the discharge process. MKA: 08/19/2019 11:32:59 MODL: 08/19/2019 20:01:03 /[id number]
== END 2019-08-19 13:00 | disposition home or self-care (01) | DRG 872 ==
LOC: VM.ED 09:54 → VM.MS 12:05
PROVIDERS: ADMIT Family Medicine; ATTEND Internal Medicine
DX: A41.9 Sepsis, unspecified organism (principal); R09.02 Hypoxemia; H52.4 Presbyopia; H52.10 Myopia, unspecified eye; A41.51 Sepsis due to Escherichia coli [E. coli]; N39.0 Urinary tract infection, site not specified; F33.9 Major depressive disorder, recurrent, unspecified; F02.81 Dementia in other diseases classified elsewhere, unspecified severity, with behavioral disturbance; E87.2 Acidosis; E11.9 Type 2 diabetes mellitus without complications; Z20.828 Contact with and (suspected) exposure to other viral communicable diseases; G25.81 Restless legs syndrome; F02.80 Dementia in other diseases classified elsewhere, unspecified severity, without behavioral disturbance, psychotic disturbance, mood disturbance, and anxiety; F32.9 Major depressive disorder, single episode, unspecified; M79.7 Fibromyalgia; Z66 Do not resuscitate; D69.6 Thrombocytopenia, unspecified; M81.0 Age-related osteoporosis without current pathological fracture; Z88.6 Allergy status to analgesic agent; E78.5 Hyperlipidemia, unspecified; F41.9 Anxiety disorder, unspecified; I10 Essential (primary) hypertension; G30.9 Alzheimer's disease, unspecified; F25.9 Schizoaffective disorder, unspecified; E78.00 Pure hypercholesterolemia, unspecified; K59.09 Other constipation; K21.9 Gastro-esophageal reflux disease without esophagitis; M19.90 Unspecified osteoarthritis, unspecified site; D64.9 Anemia, unspecified; Z79.82 Long term (current) use of aspirin; Z88.8 Allergy status to other drugs, medicaments and biological substances; Z79.84 Long term (current) use of oral hypoglycemic drugs; Z79.899 Other long term (current) drug therapy
CPT/HCPCS: 36415; 36600; 71046; 80048; 80053; 81001; 81003; 82803; 82962; 83605; 83735; 85025; 86140; 87040; 87086; 87088; 87186; 94640; 96374; 99284-GF; 99285-25; A9270-GY; J0696; J1650; J7030; J7120; J7613-GY; U0002

== ENCOUNTER 2020-07-04 13:19 | Emergency (ER) | payer MEDICARE, BC ==
[2020-07-04] MEDS ORDERED: Ketorolac 30 MG/ML SDV IM ONE (13:29)
--- NOTE | 2020-07-04 13:37 | EDM.PDOC ---
ED HPI GENERAL MEDICAL PROBLEM - General Stated Complaint: LT WRIST Time Seen by Provider: 07/04/20 13:25 Source of Information: Reports: Patient, [facility] Records - History of Present Illness INITIAL COMMENTS - FREE TEXT/NARRATIVE: Charles is an 79 y/o female who lives at [facility] and she presents here to the ER with left wrist pain. She had apparently left her room last night without her walker and then fell. She had been given a dose of ibuprofen for pain. This AM the wrist was swollen and slightly bruised. Nursing staff had apparently called Reginaldo Perdomo PA-C who advised she be brought her to the ER for an xray. - Related Data Allergies Allergy/AdvReac Type Severity Reaction Status Date / Time meperidine HCl [From Demerol] AdvReac Nausea Verified 07/04/20 14:03 seasonal Allergy Other Uncoded 07/04/20 14:03 "concetta" AdvReac Nausea Uncoded 07/04/20 14:03 Home Meds: Home Meds Acetaminophen 650 mg PO TID PRN 02/09/15 [History] Magnesium Oxide [Magnesium] 400 mg PO DAILY 02/09/15 [History] Olmesartan [Benicar] 40 mg PO DAILY 02/09/15 [History] prednisoLONE Acetate [Pred Forte 1% Ophth Susp] 1 drop EYERT DAILY 02/09/15 [History] Aspirin [Halfprin] 81 mg PO DAILY #0 02/19/15 [Rx] Dextran 70/Hypromellose [Artificial Tears] 2 drop EYEBOTH TID 12/12/16 [History] Fluticasone Propionate [Flonase] 1 spray NASBOTH BID 12/12/16 [History] Ibuprofen 400 mg PO ASDIRECTED PRN 12/12/16 [History] Nystatin [Nystatin Crm] 1 applic TOP DAILY 12/12/16 [History] QUEtiapine [SEROquel] 400 mg PO DAILY 12/12/16 [History] Sennosides 2 tab PO DAILY 12/12/16 [History] carBAMazepine [Tegretol] 150 mg PO BID 12/12/16 [History] Acetaminophen [Tylenol Extra Strength] 500 mg PO BID 08/17/19 [History] Bisacodyl [Laxative Suppository] 10 mg RC DAILY PRN 08/17/19 [History] Calcium Carbonate/Vitamin D3 [Calcium 250+D] 1 each PO BID 08/17/19 [History] Camphor/Menthol [Sarna Lotion] 0.5 applic .ROUTE ASDIRECTED PRN 08/17/19 [History] Cholecalciferol (Vitamin D3) [Vitamin D3] 2,000 unit PO DAILY 08/17/19 [History] Cranberry Fruit Extract [Cranberry] 425 mg PO TID 08/17/19 [History] Cyanocobalamin (Vitamin B-12) [Vitamin B-12] 1,000 mcg PO DAILY 08/17/19 [History] Famotidine [Pepcid] 20 mg PO DAILY 08/17/19 [History] Furosemide [Lasix] 20 mg PO DAILY 08/17/19 [History] Furosemide [Lasix] 40 mg PO DAILY 08/17/19 [History] Gabapentin [Neurontin] 300 mg PO DAILY 08/17/19 [History] Levocetirizine Dihydrochloride 5 mg PO DAILY 08/17/19 [History] OLANZapine [ZyPREXA] 10 mg PO DAILY 08/17/19 [History] Pantoprazole Sodium [Protonix] 40 mg PO Q3D 08/17/19 [History] Petrolatum,White [White Petroleum] 30 gm EYEBOTH BEDTIME 08/17/19 [History] Triamcinolone Acetonide [Triamcinolone Acetonide 0.1% Oint] 1 dose .ROUTE ASDIRECTED PRN 08/17/19 [History] Vits A,C,E/Lutein/Minerals [Healthy Eyes] 1 each PO DAILY 08/17/19 [History] bisacodyL [Bisacodyl] 5 mg PO DAILY PRN 08/17/19 [History] Potassium Chloride [Potassium Chloride Solution] 7.5 meq PO BID cup 08/19/19 [Rx] Hydrocodone/Acetaminophen [Hydrocodone-Acetamin 10-325 mg] 1 each PO [id number] #30 tablet 07/04/20 [Rx] Past Medical History HEENT History: Reports: Other (See Below) Other HEENT History: presbyopia, myopia Cardiovascular History: Reports: High Cholesterol, Hypertension Gastrointestinal History: Reports: Chronic Constipation, GERD Genitourinary History: Reports: UTI, Recurrent Other Genitourinary History: bladder surgery Musculoskeletal History: Reports: Fibromyalgia, Osteoarthritis, Other (See Below) Other Musculoskeletal History: restless leg syndrome Neurological History: Reports: Alzheimers Disease, Other (See Below) Other Neuro History: dementia, psychosis Psychiatric History: Reports: Anxiety, Depression Other Psychiatric History: seasonal affective disorder Endocrine/Metabolic History: Reports: Diabetes, Type II Hematologic History: Reports: Anemia Other Hematologic History: thrombocytopenia - Past Surgical History Other HEENT Surgeries/Procedures: eye surgery Social & Family History - Family History Family Medical History: No Pertinent Family History - Caffeine Use Caffeine Use: Reports: None Review of Systems - Review of Systems Review Of Systems: See Below Constitutional: Reports: No Symptoms Eyes: Reports: No Symptoms Ears: Reports: No Symptoms Nose: Reports: No Symptoms, Previous Injury Respiratory: Reports: No Symptoms Cardiovascular: Reports: No Symptoms GI/Abdominal: Reports: No Symptoms Genitourinary: Reports: No Symptoms Musculoskeletal: Reports: Other (left wrist pain/swelling) ED EXAM, GENERAL - Physical Exam Exam: See Below Exam Limited By: No Limitations General Appearance: Alert, WD/WN, No Apparent Distress (Elderly female, pleasant and sitting quietly in wheelchair.) Head: Atraumatic, Normocephalic Neck: Normal Inspection Respiratory/Chest: No Respiratory Distress GI/Abdominal: Soft (Female) Exam: Deferred Rectal (Female) Exam: Deferred Extremities: Other (Note swelling and mild brusing to left wrist, painful ROM, CMS wnl.) Neurological: Alert, Oriented, CN II-XII Intact Psychiatric: Normal Affect Skin Exam: Warm, Dry, Intact, Normal Color Course - Vital Signs Text/Narrative:: 1325 The patient was seen by the [facility] OPERATOR. Xray ordered. She was given Toradol 30mg IM for pain. 1410 Xray reviewed. Noted distal radius fx. Orthoglass splint applied to left forearm. Patient tolerated well. Minimal relief noted from Toradol, will give her Hydrocodone/APAP 10/325mg x1 tablet po. Will send her back to the [facility] with pain meds and instructions to see her PCP next week. Written instructions provided and [facility] were advised of plan of care. She left the ER in stable condition. - Orders/Labs/Meds Meds: Medications Discontinued Medications Generic Name Dose Route Start Last Admin Trade Name Freq PRN Reason Stop Dose Admin Ketorolac Tromethamine 30 mg 07/04/20 13:29 07/04/20 14:00 Ketorolac 30 Mg/Ml Sdv IM 07/04/20 13:30 30 mg ONETIME ONE Administration - Radiology Interpretation Free Text/Narrative:: XR Left Wrist 3V=note mildly comminuted fx of distal radius, non-displaced (See final report) Departure - Departure Time of Disposition: 14:39 Disposition: DC/Tfer to SNF 03 Condition: Good Clinical Impression: Distal radius fracture, left Qualifiers: Encounter type: initial encounter Fracture type: closed Fracture morphology: other fracture Qualified Code(s): S52.592A - Other fractures of lower end of left radius, initial encounter for closed fracture Fall at [facility] Qualifiers: Encounter type: initial encounter Qualified Code(s): W19.XXXA - Unspecified fall, initial encounter; Y92.129 - Unspecified place in [facility] as the place of occurrence of the external cause - Discharge Information *PRESCRIPTION DRUG MONITORING PROGRAM REVIEWED*: Not Applicable Prescriptions: Hydrocodone/Acetaminophen [Hydrocodone-Acetamin 10-325 mg] 1 each PO [id number] #30 tablet Instructions: Cast or Splint Care, Adult, [id number], Radial Fracture Referrals: Addie Mccallum, [Primary Care Provider] - Additional Instructions: -Ibuprofen 400mg oral every 6 hours as needed -Hydrocodone/APAP 10mg/325mg 1 tablet oral every 6 hours as needed for pain #30 (Rx) -Apply ice as able -Keep the affected extremity elevated as much as possible -Use an arm sling if needed when you are up and walking -[facility] staff to assist with cares until arm splint off -Make an appt to see Dr Addie Mccallum for recheck next week. She will recheck the fracture and determine if you need an Ortho consult or you can be managed locally. -Return to the ER as needed for any concerns
--- NOTE | 2020-07-04 14:19 | CR ---
[id number] RAD/RAD Wrist Left 3V Min EXAM: RAD Wrist Left 3V Min INDICATION: FALL AT [facility]ARE [facility] YESTERDAY, PAIN. COMPARISON: None. DISCUSSION: Acute comminuted and impacted distal radius fracture with up to 4 mm distraction and mild step-off at the articular surface. Adjacent soft tissue swelling. Osteopenia. Moderate triscaphe and first carpometacarpal osteoarthritis. IMPRESSION: 1. Acute comminuted, impacted, and distracted intra-articular fracture of the distal radius. Tate Barkley MD 07/04/20 9332 Thank you for allowing us to participate in the care of your patient.
[2020-07-04] MEDS ORDERED: Acetaminophen/HYDROcodone 325-10 MG Tab PO ONE (14:38)
[2020-07-04 14:53] VITALS: BP 147/71; PULSE 92
== END 2020-07-04 15:00 ==
LOC: VM.ED 13:19
DX: S52.592A Other fractures of lower end of left radius, initial encounter for closed fracture (principal); K21.9 Gastro-esophageal reflux disease without esophagitis; E78.00 Pure hypercholesterolemia, unspecified; I10 Essential (primary) hypertension; E11.9 Type 2 diabetes mellitus without complications; Z79.82 Long term (current) use of aspirin; Z79.899 Other long term (current) drug therapy; Z88.5 Allergy status to narcotic agent; Z91.048 Other nonmedicinal substance allergy status; W18.39XA Other fall on same level, initial encounter
CPT/HCPCS: 29125; 73110; 96372; 99283; 99284; A9270; J1885

== ENCOUNTER 2022-02-17 18:59 | Emergency (ER) | payer MEDICARE, BC ==
[2022-02-17 21:38] VITALS: BP 175/75; PULSE 91
== END 2022-02-17 19:29 | disposition home or self-care (01) ==
LOC: VM.ED 18:59
DX: R04.0 Epistaxis (principal); I10 Essential (primary) hypertension; E11.9 Type 2 diabetes mellitus without complications; Z88.8 Allergy status to other drugs, medicaments and biological substances; Z91.048 Other nonmedicinal substance allergy status; Z79.899 Other long term (current) drug therapy; Z79.82 Long term (current) use of aspirin
CPT/HCPCS: 30901; 30903; 99283-25; 99284